=== PATIENT | female | born 1960 | race Caucasian/White ===

== ENCOUNTER 2020-04-08 18:29 | Inpatient (IN) | payer OTHER, SELFPAY ==
[2020-04-08] VITALS (9 sets, daily range): BP systolic 118–162; BP diastolic 65–93; PULSE 91–108; RESP 16–24; TEMP 36.2–37.2; O2SAT 89–100; BMI 32.9
--- NOTE | ~2020-04-08 | CT_ITS ---
EXAMINATION: CTA chest PE protocol DATE: 04/28/2020 15:58 INDICATION: Severe persistent hypoxia. COVID-19 pneumonia. TECHNIQUE: Computed tomography angiography (CTA) of the chest was performed with 100 mL Omnipaque-350 intravenous contrast timed to evaluate the pulmonary arteries. Coronal maximum intensity projection 3D-reconstructions were created by the technologist. Automated exposure control and iterative reconst ruction technique were employed. The dose-length product was 376.62 mGy-cm. COMPARISON: Chest CT 04/24/2020 FINDINGS: The lung volumes are small. There are patchy airspace opacities, groundglass opacities, and reticular opacities throughout the lungs bilaterally with areas of architectural distortion. There i s mild emphysema. There is a trace left pleural effusion. The heart size is normal. There are coronar y artery calcifications. No pericardial effusion. There is mild mediastinal and bilateral hilar lymph adenopathy, likely reactive. There is no pulmonary embolus. There is a 7.5 cm cyst in the liver. Ther e is mild thoracic spondylosis. IMPRESSION: 1. No pulmonary embolus. 2. Stable diffuse lung disease, consistent with pneumonia. 3. Mild emphysema. 4. Mild mediastinal and bilateral hilar lymphadenopathy, likely reactive. Reviewed, dictated and finalized at location A. ERY ASSEMBLER PLASTIC
--- NOTE | ~2020-04-08 | XR_ITS ---
EXAMINATION: XR chest 1V portable DATE: 04/08/2020 19:07 INDICATION: Shortness of breath. COVID-19 positive. TECHNIQUE: A single frontal view of the chest was obtained. COMPARISON: Chest single view 08/27/2007 FINDINGS: There are hazy airspace opacities in all lung zones bilaterally. No pleural effusion or pne umothorax. The heart size is normal. IMPRESSION: 1. Diffuse lung disease, consistent with pneumonia versus pulmonary edema. Reviewed, dictated and finalized at location A. UM CLEANER REPAIR PERSON
--- NOTE | ~2020-04-08 | XR_ITS ---
EXAMINATION: XR chest 2V EXAM DATE: 04/27/2020 11:50 INDICATION: COVID-19, persistent hypoxia, FOLLOW-UP. TECHNIQUE: Frontal and lateral projections of the chest obtained and reviewed. Comparison is made to prior examination from 04/23/2020. FINDINGS: Extensive bilateral peripheral predominant acute airspace disease with sizable regions of c onfluence which may have demonstrated mild progression. No pneumothorax or sizable pleural effusion. The cardiomediastinal silhouette is prominent but magnified on this AP technique. There are no osseou s abnormalities identified. IMPRESSION: Extensive acute airspace disease with mild progression in regions of confluence. Reviewed, dictated and finalized at location A. RENTAL TECHNICIAN IMPRESSION: Extensive acute airspace disease with mild progression in regions o f confluence.
--- NOTE | ~2020-04-08 | XR_ITS ---
EXAMINATION: XR chest 1V portable EXAM DATE: 04/14/2020 06:23 INDICATION: Shortness of breath. Hypoxia. COVID-19. TECHNIQUE: Portable AP frontal chest x-ray was obtained. Comparison is made to prior examination from 04/08/2020. FINDINGS: Moderate amount of ill-defined acute airspace disease involving all lung zones. Could be ed lolly, ARDS, infection. Slight interval progression compared to previous examination. No pneumothorax o r pleural effusion. Cardiomediastinal silhouette is normal. There are no osseous abnormalities identi fied. IMPRESSION: Moderate amount of diffuse ill-defined acute airspace disease. Clinical correlation. Reviewed, dictated and finalized at location A. E UP COPY CAMERA OPERATOR IMPRESSION: Moderate amount of diffuse ill-defined acute airspace disease. Clin ical correlation.
--- NOTE | ~2020-04-08 | CT_ITS ---
EXAMINATION: CTA chest PE protocol DATE: 04/24/2020 11:33 INDICATION: COVID-19 pneumonia. Hypoxia. TECHNIQUE: Computed tomography angiography (CTA) of the chest was performed with 100 mL Omnipaque-350 intravenous contrast timed to evaluate the pulmonary arteries. Coronal maximum intensity projection 3D-reconstructions were created by the technologist. Automated exposure control and iterative reconst ruction technique were employed. The dose-length product was 289.99 mGy-cm. COMPARISON: Chest 2 views 04/23/2020 FINDINGS: There is mild emphysema. There are airspace, groundglass, and reticular opacities scattered throughout the lungs bilaterally. There is a trace left pleural effusion. The heart size is normal. There are coronary artery calcifications. No pericardial effusion. There is no pulmonary embolus. The re is mild mediastinal and bilateral hilar lymphadenopathy. There is a 7.3 cm cyst in the liver. Ther e is mild thoracic spondylosis. IMPRESSION: 1. No pulmonary embolus. 2. Diffuse lung disease, consistent with pneumonia. 3. Mild emphysema. 4. Mild mediastinal and bilateral hilar lymphadenopathy, likely reactive. Reviewed, dictated and finalized at location A. NCIAL ADVOCATE
--- NOTE | ~2020-04-08 | XR_ITS ---
EXAMINATION: XR chest 2V DATE: 04/23/2020 13:04 INDICATION: COVID-19 pneumonia. Hypoxia. TECHNIQUE: Frontal and lateral views of the chest were obtained. COMPARISON: Chest single view 04/14/2020, 04/08/2020, 08/27/2007 FINDINGS: The lung volumes are decreased. There are airspace and interstitial opacities involving all lung zones bilaterally with a peripheral predominance. There is sparing of the costophrenic angles a nd relative sparing of the lung apices. No pleural effusion or pneumothorax. The heart size is normal . IMPRESSION: 1. Worsened diffuse lung disease, consistent with pneumonia. Reviewed, dictated and finalized at location A. NESS SERVICES ASSOCIATE
--- NOTE | 2020-04-08 18:38 | ECG_ITS ---
Measurements Intervals [place] Rate: 100 P: 145 AL: 133 QRS: 205 QRSD: 87 T: 169 QT: 339 QTc: 438 Interpretive Statements SINUS TACHYCARDIA ARM LEADS REVERSED RSR' IN V1 OR V2, PROBABLY NORMAL VARIANT BORDERLINE R WAVE PROGRESSION, ANTERIOR LEADS BORDERLINE T WAVE ABNORMALITY- ANT/INF LEADS BASELINE ARTIFACT- I, II, AVL BORDERLINE ECG Electronically Signed On 04-08-2020 19:21:05 WET PROCESS HEAD MILLER by Deon Albrecht D.O.
--- NOTE | 2020-04-08 19:04 | ED.SOB ---
HPI - SOB/Dyspnea General Chief Complaint: Shortness of Breath/Dyspnea Stated Complaint: Covid and trouble breathing Time Seen by Provider: 04/08/20 18:54 Source: patient History of Present Illness HPI Narrative: 59-year-old female presents to emergency department for shortness of breath for the past few days. Patient states she has never felt like this in the past before. He has tried her inhaler with minimal improvement. Patient states her granddaughter was diagnosed with coronavirus. She does report some chest discomfort and fevers. No abdominal pain. No nausea or vomiting. Related Data Allergies Allergy/AdvReac Type Severity Reaction Status Date / Time aspirin Allergy Mild Verified 09/10/10 11:51 Review of Systems Review of Systems: Narrative: CONSTITUTIONAL: Denies fever, chills, or sweats. EYES: Denies visual changes, redness, or discharge. ENT: Denies rhinorrhea, congestion, sore throat, or otalgia. CARDIOVASCULAR: Denies chest pain, palpitations, or edema. RESPIRATORY: Denies cough or dyspnea. GASTROINTESTINAL: Denies abdominal pain, nausea, vomiting, or diarrhea. GENITOURINARY: Denies dysuria or hematuria. SKIN: Denies rash or itching. MUSCULOSKELETAL: Denies back pain, joint pain, or myalgia. NEUROLOGIC: Denies headache, numbness, dizziness, or weakness. PSYCHIATRIC: Denies anxiety or depression. All systems reviewed & are unremarkable except as noted in HPI and below (ROS) Exam Narrative: Exam Narrative: GENERAL: Well-appearing, well-nourished, and in no acute distress. HEAD: Normocephalic, atraumatic. EYES: PERRLA and EOMI. ENT: Nares clear, no rhinorrhea or epistaxis. Mucous membranes moist. NECK: Supple. CHEST: Minimal bilateral expiratory wheezing HEART: Regular rate and rhythm. No murmur heard. Normal peripheral pulses. ABDOMEN: Soft, nontender, nondistended, normal active bowel sounds. EXTREMITIES: Normal range of motion. No edema. SKIN: Warm, dry, no rash. NEURO: No focal deficits. Alert and oriented x3. PSYCH: Normal mood and affect. Course Reevaluation(s) Reevaluation #1: 1939 -reevaluated patient, feels better after oxygen administration. Patient initially had oxygen saturations in the upper 80s and lower 90s. Consultations Consultation #1: 1944 - discussed case with Dr. Ybarra, accepts for OBS Vital Signs Vital signs: Vital Signs Temperature 36.2 C L 04/08/20 18:35 Pulse Rate 102 H 04/08/20 18:35 Respiratory Rate 23 H 04/08/20 18:35 Blood Pressure 162/93 H 04/08/20 18:35 Pulse Oximetry 95 04/08/20 18:35 Temperature 36.2 C L 04/08/20 18:35 Pulse Rate 108 H 04/08/20 19:35 Respiratory Rate 17 04/08/20 19:35 Blood Pressure 142/76 H 04/08/20 19:35 Pulse Oximetry 96 04/08/20 19:36 MDM - SOB/Dyspnea Medical Records Attestation: I reviewed the patient's medical records. Lab Data Attestation: I reviewed the patient's lab results. Result diagrams: 04/08/20 19:01 04/08/20 19:01 Labs: Lab Results 04/08/20 04/08/20 04/08/20 Range/Units 19:01 19:01 19:05 WBC 5.6 (4.5-10.0) K/mm3 RBC 5.06 (4.2-5.4) M/mm3 Hgb 14.3 (12.0-15.0) g/dL Hct 44.5 (37.0-47.0) % MCV 87.9 (80-100) fl MCH 28.3 (26-34) pg MCHC 32.1 (32-36) g/dl RDW 12.2 (11.5-14.5) % Plt Count 191 (150-375) k/mm3 MPV 10.4 (7.4-10.4) fl Immature Gran % (Auto) 0.5 (0-0.5) % Neut % (Auto) 74.3 H (45.5-73.1) % Lymph % (Auto) 20.6 (18.3-44.2) % [place] % (Auto) 4.4 (2.6-8.5) % Eos % (Auto) 0.0 (0-4.4) % Baso % (Auto) 0.2 (0.2-1.2) % Lymph # (Auto) 1.16 (0.9-3.2) K/mm3 [place] # (Auto) 0.3 (0.1-0.6) K/mm3 Eos # (Auto) 0.0 (0-0.3) K/mm3 Baso # (Auto) 0.0 (0.0-0.1) K/mm3 Abs Immat Gran (auto) 0.03 (0.00-0.031) K/mm3 Absolute Neuts (auto) 4.2 (1.3-6.7) K/mm3 Absolute Nucleated RBC 0.0 (0.0-0.012) K/mm3 Nucleated RBC % 0.0 (0.0-0.2) % Sodium 139 (137-145) mmol/L Pot
[2020-04-08 19:17] LABS: Basophils Percent Auto 0.2 % (0.2-1.2); Hematocrit 44.5 % (37.0-47.0); Hemoglobin 14.3 g/dL (12.0-15.0); Immature Granulocyte Absolute 0.03 K/mm3 (0.00-0.031); Immature Granulocyte Percent A 0.5 % (0-0.5); Lymphocytes Absolute Auto 1.16 K/mm3 (0.9-3.2); Lymphocytes Percent Auto 20.6 % (18.3-44.2); Mean Corpuscular HGB Conc 32.1 g/dl (32-36); Mean Corpuscular Hemoglobin 28.3 pg (26-34); Mean Corpuscular Volume 87.9 fl (80-100); Mean Platelet Volume 10.4 fl (7.4-10.4); Monocytes Absolute Auto 0.3 K/mm3 (0.1-0.6); Monocytes Percent Auto 4.4 % (2.6-8.5); Neutrophils Absolute Auto 4.2 K/mm3 (1.3-6.7); Neutrophils Percent Auto 74.3 % (45.5-73.1); Platelet Count Result 191 k/mm3 (150-375); Red Blood Count 5.06 M/mm3 (4.2-5.4); Red Cell Distribution Width 12.2 % (11.5-14.5); White Blood Count 5.6 K/mm3 (4.5-10.0)
[2020-04-08] MEDS: ALBUTEROL SULFATE (*SP) AEROSOL 1 PUFF 4 PUFF INHALATION (19:19)
[2020-04-08 19:29] LABS: Lactic Acid Reflex 2.1 mmol/L (0.7-2.1)
[2020-04-08 19:40] LABS: Alanine Aminotransferase 26 U/L (4-35); Albumin Level 3.8 g/dL (3.5-5.1); Alkaline Phosphatase 88 U/L (38-126); Anion Gap 13 mmol/L (8-16); Aspartate Amino Transferase 44 U/L (14-36); Bilirubin,Total 0.6 mg/dL (0.2-1.3); Blood Urea Nitrogen 12 mg/dL (7-17); Calcium 8.8 mg/dL (8.4-10.2); Carbon Dioxide 24 mmol/L (22-30); Chloride 102 mmol/L (98-107); Estimated Glomerular Filt Rate > 60; Glucose 168 mg/dL (65-105); Potassium 3.4 mmol/L (3.4-5.0); Sodium 139 mmol/L (137-145)
[2020-04-08] MEDS: methylPREDNISolone SOD SUCC 40 MG VIAL 80 MG IV PUSH (19:46)
--- NOTE | 2020-04-08 19:46 | PM.IMHP ---
H&P: HPI History of Present Illness Date/Time: 04/08/20 19:46 Chief complaint: suspected COVID-19 Narrative: Gloria Latif is a 59 year old female with past medical history of moderate persistent asthma who presents to the ED with complaints of shortness of breath for 1 week. She had recent sick contact of her granddaughter who has tested positive for COVID-19. patient for the past week has had fevers, chills, body aches, cough with yellow phlegm, dyspnea. She uses albuterol rescue inhaler for her asthma which did not help her with these symptoms. She is not compliant with her Symbicort. In the ED: Patient oxygen saturation went to 88% on room air and was put on 3 L nasal cannula. Chest x-ray showed bilateral infiltrate consistent COVID-19. Lab work within normal limits. EKG shows sinus tachycardia rate 100, normal intervals. patient admitted for observation for hypoxia and COVID-19. Review of Systems Review of Systems: Narrative: Constitutional: endorses fever, chills, body aches ENT/Mouth: No Hearing Changes, No Ear Pain, No Nasal Congestion, No Sinus Pain, No Hoarseness, No sore throat, No Rhinorrhea, No Swallowing Difficulty Eyes: No Eye Pain, No Redness, No Vision Changes Cardiovascular: No Chest Pain, No Palpitations, No Dyspnea on Exertion, No Orthopnea, No Claudication, No Edema Respiratory: Endorses shortness of breath and cough with yellow sputum, denies wheezing Gastrointestinal: No Nausea, No Vomiting, No Diarrhea, No Constipation, No Abdominal Pain, No Heartburn, No Hematochezia, No Melena Genitourinary: No Dysuria, No Urinary Frequency, No Hematuria, No Urinary Incontinence, No Urgency Musculoskeletal: No Arthralgias, No Myalgias, No Joint Swelling, No Joint Stiffness, No Back Pain Skin: No Skin Lesions, No Pruritis, No Hair Changes Neuro: No Weakness, No Numbness, No Paresthesias, No Loss of Consciousness, No Syncope, No Dizziness, No Headache Psych: No Anxiety/Panic, No Depression, No Insomnia Heme: No Bruising, No Bleeding Lymph: No Adenopathy Endocrine: No Polyuria, No Polydipsia, No Temperature Intolerance PMFSH Past Medical History Medical History GERD (gastroesophageal reflux disease) Moderate persistent asthma Obesity (BMI 30.0-34.9) Family History Family History Sibling Diabetes mellitus Dialysis patient Father Congestive heart failure Sibling Myocardial infarction Social History Social History (Updated 04/08/20 @ 23:29 by Crow Ybarra DO) Years smoked: 10 Smoking status: Heavy tobacco smoker Tobacco type: cigarettes Alcohol intake: former Drinks per week: 2 Substance use: former Substance use type: marijuana Last use: 1 month ago Occupation/Education: retired Additional occupation/education comments: previously worked in retirement as aide Gender identity (if verbalized by the patient): Female Spiritual care concerns: No Meds Home Medications and Allergies Home Medications Medication Instructions Recorded Confirmed Type albuterol sulfate 2 puff INHALATION Q4-6H PRN 04/08/20 04/08/20 History budesonide-formoterol [Symbicort] 2 puff INHALATION Q12H 04/08/20 04/08/20 History famotidine 20 mg PO BID 04/08/20 04/08/20 History Allergies Allergy/AdvReac Type Severity Reaction Status Date / Time aspirin Allergy Severe Hives Verified 04/08/20 22:37 Vital Signs Vital Signs - 24 hr 04/08/20 18:35 04/08/20 18:50 04/08/20 19:22 Temperature 36.2 C L Pulse Rate 102 H 101 H Respiratory Rate 23 H 18 Blood Pressure 162/93 H Pulse Oximetry 95 94 04/08/20 19:35 04/08/20 19:36 Temperature Pulse Rate 108 H Respiratory Rate 17 Blood Pressure 142/76 H Pulse Oximetry 89 L 96 Exam Narrative: Exam Narrative: - GENERAL: pleasant woman no acute distress with nonlabored breathing on 2 L O2 - EYES: E
[2020-04-08 19:47] LABS: NT Pro B Type Natriuretic Pept 87 PG/ML (5-100)
--- NOTE | 2020-04-08 20:55 | PC.NURSE ---
Attempted to call report. Told RN was in a room. She will call me back when available.
--- NOTE | 2020-04-08 21:40 | ADMGEN ---
This patient, Renata Latif, was admitted to 3 [facility] Surg Room 320-01. Patient/family oriented to hospital policies and general routines including ID bracelet, bed and alarms, visiting hours, pain management, procedures, bathroom and other care routines, personal items, smoking policy, room service/diet, and visiting hours. Information on how to activate the Rapid Response Team has been discussed. Patient/Family are encouraged to report perceived risks to care and to ask questions if they do not understand what they are told or what they should do.
[2020-04-08 22:14] LABS: Reflex Lactic Acid Yes or No Add Lactic
[2020-04-08 22:52] LABS: Lactic Acid 0.8 mmol/L (0.7-2.1)
[2020-04-09] VITALS (11 sets, daily range): BP systolic 110–143; BP diastolic 63–79; PULSE 16–94; RESP 16–20; TEMP 36.5–36.8; O2SAT 93–100
[2020-04-09 06:32] LABS: Hematocrit 44.3 % (37.0-47.0); Hemoglobin 14.6 g/dL (12.0-15.0); Mean Corpuscular Hemoglobin 28.9 pg (26-34); Mean Corpuscular Volume 87.7 fl (80-100); Mean Platelet Volume 10.8 fl (7.4-10.4); Platelet Count Result 186 k/mm3 (150-375); Red Blood Count 5.05 M/mm3 (4.2-5.4); White Blood Count 4.4 K/mm3 (4.5-10.0)
[2020-04-09 06:51] LABS: Anion Gap 13 mmol/L (8-16); Blood Urea Nitrogen 11 mg/dL (7-17); Calcium 8.8 mg/dL (8.4-10.2); Carbon Dioxide 24 mmol/L (22-30); Chloride 102 mmol/L (98-107); Estimated Glomerular Filt Rate > 60; Glucose 253 mg/dL (65-105); Lactate Dehydrogenase 833 U/L (313-618); Potassium 3.7 mmol/L (3.4-5.0); Sodium 139 mmol/L (137-145)
[2020-04-09] MEDS: CHOLECALCIFEROL 1,000 UNITS TABLET 1000 UNITS PO (08:46)
[2020-04-09] MEDS: ASCORBIC ACID 500 MG TABLET PO (08:46)
[2020-04-09] MEDS: FAMOTIDINE 20 MG TABLET PO ×2 (08:46→17:26)
[2020-04-09] MEDS: DEXAMETHASONE 2 MG TABLET 6 MG PO (08:46)
[2020-04-09] MEDS: ZINC SULFATE 220 MG CAPSULE PO (08:46)
[2020-04-09] MEDS: ENOXAPARIN 40 MG/0.4 ML SYRINGE SUB-Q ×2 (08:46→20:30)
[2020-04-09] MEDS: ALBUTEROL SULFATE (*SP) AEROSOL 1 PUFF 2 PUFF INHALATION ×3 (10:20→20:41)
--- NOTE | 2020-04-09 13:45 | PM.IMPN ---
Progress Note: A&P Assessment and Plan (1) Suspected COVID-19 virus infection: Code(s): Z20.828 - Contact with and (suspected) exposure to other viral communicable diseases Status: Acute Assessment and Plan: Patient presents with worsening shortness of breath, describes her great granddaughter tested positive for COVID 1 week ago. Chest XR shows bilateral hazy airspace opacities. COVID result still pending. Continue dexamethasone (day 2). Plan to initiate remdesivir if COVID positive this evening. Continue supplemental O2 and wean as tolerated to keep O2 saturations > 90%. On 3 L today. Continue supportive care with Tylenol for fevers, albuterol MDI, incentive spirometer, supplementation of Zinc, vitamins C and D. (2) Acute respiratory failure: Qualifiers: Respiratory failure complication: hypoxia Qualified Code(s): J96.01 - Acute respiratory failure with hypoxia Code(s): J96.00 - Acute respiratory failure, unspecified whether with hypoxia or hypercapnia Status: Acute Assessment and Plan: Secondary to above. (3) Moderate persistent asthma: Qualifiers: Asthma complication type: unspecified Qualified Code(s): J45.40 - Moderate persistent asthma, uncomplicated Code(s): J45.40 - Moderate persistent asthma, uncomplicated Status: Acute Assessment and Plan: Continue her home Symbicort. (4) Obesity (BMI 30.0-34.9): Code(s): E66.9 - Obesity, unspecified Status: Chronic Assessment and Plan: Healthy lifestyle modifications are encouraged. Subjective Date/time seen: 04/09/20 13:15 Interval history: Ms. Latif is a pleasant 59yo F admitted for acute respiratory failure secondary to COVID-19. Overall, she reports feeling much better compared to yesterday and her shortness of breath is improved. She denies chest pain. She tells me she has walked to and from the restroom in her room without shortness of breath. Tolerating some oral intake without nausea or vomiting. Review of Systems Review of Systems: All systems reviewed & are unremarkable except as noted in HPI and below Exam Narrative: Exam Narrative: General: Female resting comfortably sitting up in bed in no acute respiratory distress. HEENT: Normocephalic, EOMI, oral mucosa moist. Cardiovascular: Rate and rhythm are regular. Respiratory: Decreased breath sounds bilaterally. Respirations even and nonlabored. Tolerating 3L nasal cannula comfortably at time of my exam. Abdomen: Soft, non-tender, non-distended, bowel sounds present. Extremities: Peripheral pulses intact. No edema. Neuro: No focal neurological deficits. Speech is clear. Objective Data Vital Signs Vital Signs: Last Vital Signs Temp 98.1 F 04/09/20 16:00 Pulse 88 04/09/20 16:00 Resp 18 04/09/20 16:00 BP 129/66 04/09/20 16:00 Pulse Ox 94 04/09/20 16:05 Intake/Output Intake/Output: Intake & Output 04/06/20 04/07/20 04/08/20 04/09/20 23:59 23:59 23:59 23:59 Intake Total 590 Output Total 1000 Balance -410 Meds/Results Medications: Active Medications Generic Name Dose Route Start Last Admin Trade Name Freq PRN Reason Stop Dose Admin Acetaminophen 650 mg 04/08/20 22:24 Acetaminophen 325 Mg Tablet PO Q4H PRN Mild Pain (1-3) or Fever Albuterol 2 puff 04/09/20 08:00 Albuterol Sulfate (*Sp) Aerosol 1 Puff INHALATION QIDRT [facility] Ascorbic Acid 500 mg 04/09/20 09:00 04/09/20 08:46 Ascorbic Acid 500 Mg Tablet PO 500 mg DAILY WILBERT Administration Budesonide/Formoterol Fumarate 2 puff 04/09/20 08:00 Budesonide/Form 160-4.5 Mcg (*Sp) INHALATION Q12HRT [facility] Dexamethasone 6 mg 04/09/20 08:00 04/09/20 08:46 Dexamethasone 2 Mg Tablet PO 04/18/20 08:01 6
[2020-04-09 18:20] LABS: SARS-CoV-2 RNA PCR Positive
--- NOTE | 2020-04-09 18:54 | PC.NURSE ---
Notified Jovita AKERS of positive covid results.No new orders recived.
[2020-04-09] MEDS: REMDESIVIR 200 MG/NS 250 ML 200 MG/250 ML BAG 250 MG IVPB (20:30)
[2020-04-10] VITALS (11 sets, daily range): BP systolic 102–129; BP diastolic 58–77; PULSE 73–87; RESP 18–20; TEMP 36.5–37.4; O2SAT 90–97
[2020-04-10 06:47] LABS: Basophils Percent Auto 0.1 % (0.2-1.2); Hematocrit 44.8 % (37.0-47.0); Hemoglobin 14.4 g/dL (12.0-15.0); Immature Granulocyte Absolute 0.05 K/mm3 (0.00-0.031); Immature Granulocyte Percent A 0.4 % (0-0.5); Lymphocytes Absolute Auto 1.42 K/mm3 (0.9-3.2); Lymphocytes Percent Auto 10.9 % (18.3-44.2); Mean Corpuscular HGB Conc 32.1 g/dl (32-36); Mean Corpuscular Hemoglobin 28.5 pg (26-34); Mean Corpuscular Volume 88.5 fl (80-100); Mean Platelet Volume 10.5 fl (7.4-10.4); Monocytes Absolute Auto 0.6 K/mm3 (0.1-0.6); Monocytes Percent Auto 4.4 % (2.6-8.5); Neutrophils Percent Auto 84.2 % (45.5-73.1); Platelet Count Result 244 k/mm3 (150-375); Red Blood Count 5.06 M/mm3 (4.2-5.4)
[2020-04-10 07:13] LABS: Alanine Aminotransferase 29 U/L (4-35); Albumin Level 3.9 g/dL (3.5-5.1); Alkaline Phosphatase 85 U/L (38-126); Anion Gap 13 mmol/L (8-16); Aspartate Amino Transferase 39 U/L (14-36); Bilirubin,Total 0.5 mg/dL (0.2-1.3); Blood Urea Nitrogen 14 mg/dL (7-17); CRP 2.8 mg/dL (<1.0); Calcium 9.1 mg/dL (8.4-10.2); Carbon Dioxide 28 mmol/L (22-30); Chloride 101 mmol/L (98-107); Estimated Glomerular Filt Rate > 60; Glucose 152 mg/dL (65-105); Magnesium 2.1 mg/dL (1.6-2.3); Potassium 3.6 mmol/L (3.4-5.0); Sodium 142 mmol/L (137-145)
[2020-04-10] MEDS: ALBUTEROL SULFATE (*SP) AEROSOL 1 PUFF 2 PUFF INHALATION ×3 (08:23→16:48)
[2020-04-10] MEDS: DEXAMETHASONE 2 MG TABLET 6 MG PO (09:38)
[2020-04-10] MEDS: ZINC SULFATE 220 MG CAPSULE PO (09:38)
[2020-04-10] MEDS: FAMOTIDINE 20 MG TABLET PO ×2 (09:38→16:51)
[2020-04-10] MEDS: CHOLECALCIFEROL 1,000 UNITS TABLET 1000 UNITS PO (09:38)
[2020-04-10] MEDS: ASCORBIC ACID 500 MG TABLET PO (09:38)
[2020-04-10] MEDS: ENOXAPARIN 40 MG/0.4 ML SYRINGE SUB-Q ×2 (09:39→20:36)
[2020-04-10] MEDS: ACETAMINOPHEN 325 MG TABLET 650 MG PO (12:10)
--- NOTE | 2020-04-10 14:03 | PM.IMPN ---
Progress Note: A&P Assessment and Plan (1) Suspected COVID-19 virus infection: Code(s): Z20.828 - Contact with and (suspected) exposure to other viral communicable diseases Status: Acute Assessment and Plan: Patient presents with worsening shortness of breath, describes her great granddaughter tested positive for COVID 1 week ago. Chest XR showed bilateral hazy airspace opacities. COVID positive 04/08. Continue dexamethasone (day 3); remdesivir (day 2). Continue supplemental O2 and wean as tolerated to keep O2 saturations > 90%. Remains on 3 L today. Continue supportive care with Tylenol for fevers, albuterol MDI, incentive spirometer, supplementation of Zinc, vitamins C and D. (2) Acute respiratory failure: Qualifiers: Respiratory failure complication: hypoxia Qualified Code(s): J96.01 - Acute respiratory failure with hypoxia Code(s): J96.00 - Acute respiratory failure, unspecified whether with hypoxia or hypercapnia Status: Acute Assessment and Plan: Secondary to above. (3) Moderate persistent asthma: Qualifiers: Asthma complication type: unspecified Qualified Code(s): J45.40 - Moderate persistent asthma, uncomplicated Code(s): J45.40 - Moderate persistent asthma, uncomplicated Status: Acute Assessment and Plan: Continue her home Symbicort. (4) Obesity (BMI 30.0-34.9): Code(s): E66.9 - Obesity, unspecified Status: Chronic Assessment and Plan: Healthy lifestyle modifications are encouraged. Subjective Date/time seen: 04/10/20 1300 Interval history: Ms. Latif is a pleasant 59yo F admitted for acute respiratory failure secondary to COVID-19. She is short of breath with walking today. Didn't sleep much last night. No chest pain. Her appetite is good and she is tolerating oral intake without nausea or vomiting. Starting to get smell and taste back today. Denies any urinary symptoms such as dysuria or hematuria. Review of Systems Review of Systems: All systems reviewed & are unremarkable except as noted in HPI and below Exam Narrative: Exam Narrative: General: Female resting comfortably sitting up on bedside couch eating lunch in no acute respiratory distress. HEENT: Normocephalic, EOMI, oral mucosa moist. Cardiovascular: Rate and rhythm are regular. Respiratory: Decreased breath sounds bilaterally. Respirations even and nonlabored. Tolerating 3L nasal cannula comfortably at time of my exam. Abdomen: Soft, non-tender, non-distended, bowel sounds present. Extremities: Peripheral pulses intact. No edema. Neuro: No focal neurological deficits. Speech is clear. Objective Data Vital Signs Vital Signs: Last Vital Signs Temp 98.0 F 04/10/20 13:10 Pulse 87 04/10/20 12:00 Resp 20 04/10/20 12:00 BP 129/68 04/10/20 12:00 Pulse Ox 92 04/10/20 12:00 Intake/Output Intake/Output: Intake & Output 04/07/20 04/08/20 04/09/20 04/10/20 23:59 23:59 23:59 23:59 Intake Total 1460 930 Output Total 2300 Balance -840 930 Meds/Results Medications: Active Medications Generic Name Dose Route Start Last Admin Trade Name Freq PRN Reason Stop Dose Admin Acetaminophen 650 mg 04/08/20 22:24 04/10/20 12:10 Acetaminophen 325 Mg Tablet PO 650 mg Q4H PRN Administration Mild Pain (1-3) or Fever Albuterol 2 puff 04/09/20 08:00 04/10/20 13:01 Albuterol Sulfate (*Sp) Aerosol 1 Puff INHALATION 2 puff QIDRT WILBERT Administration Ascorbic Acid 500 mg 04/09/20 09:00 04/10/20 09:38 Ascorbic Acid 500 Mg Tablet PO 500 mg DAILY WILBERT Administration Budesonide/Formoterol Fumarate 2 puff 04/09/20 08:00 04/10/20 08:23 Budesonide/Form 160-4.5 Mcg (*Sp) INHALATION 2 puff Q12HRT WILBERT Administration Dexame
[2020-04-10] MEDS: REMDESIVIR 100 MG/NS 250 ML 100 MG/250 ML BAG 250 MG IVPB (15:04)
[2020-04-10 15:21] LABS: Add Urine Microscopic? NO; Appearance Urine Clear (Clear); Bilirubin Urine Negative (Negative); Blood Urine Negative (Negative); Color Urine Yellow (Yellow); Glucose Urine UA Negative (Negative); Ketones Urine Negative (Negative); Leukocyte Esterase Ur Negative LEU/UL (Negative); Nitrate Urine Negative (Negative); Protein Urine Negative (Negative); Urobilinogen Urine Negative mg/dL (<2.0)
[2020-04-11] VITALS (8 sets, daily range): BP systolic 112–125; BP diastolic 58–67; PULSE 66–76; RESP 18–20; TEMP 36.3–36.9; O2SAT 90–94
[2020-04-11 06:41] LABS: Basophils Percent Auto 0.1 % (0.2-1.2); Hematocrit 41.3 % (37.0-47.0); Hemoglobin 13.6 g/dL (12.0-15.0); Immature Granulocyte Absolute 0.03 K/mm3 (0.00-0.031); Immature Granulocyte Percent A 0.3 % (0-0.5); Lymphocytes Absolute Auto 1.33 K/mm3 (0.9-3.2); Lymphocytes Percent Auto 14.5 % (18.3-44.2); Mean Corpuscular HGB Conc 32.9 g/dl (32-36); Mean Corpuscular Hemoglobin 28.8 pg (26-34); Mean Corpuscular Volume 87.3 fl (80-100); Mean Platelet Volume 10.6 fl (7.4-10.4); Monocytes Absolute Auto 0.6 K/mm3 (0.1-0.6); Monocytes Percent Auto 6.6 % (2.6-8.5); Neutrophils Absolute Auto 7.2 K/mm3 (1.3-6.7); Neutrophils Percent Auto 78.5 % (45.5-73.1); Platelet Count Result 251 k/mm3 (150-375); Red Blood Count 4.73 M/mm3 (4.2-5.4); White Blood Count 9.2 K/mm3 (4.5-10.0)
[2020-04-11 06:57] LABS: Alanine Aminotransferase 28 U/L (4-35); Albumin Level 3.6 g/dL (3.5-5.1); Alkaline Phosphatase 80 U/L (38-126); Anion Gap 9 mmol/L (8-16); Aspartate Amino Transferase 32 U/L (14-36); Bilirubin,Total 0.6 mg/dL (0.2-1.3); Blood Urea Nitrogen 20 mg/dL (7-17); CRP 3.9 mg/dL (<1.0); Calcium 8.7 mg/dL (8.4-10.2); Carbon Dioxide 29 mmol/L (22-30); Chloride 102 mmol/L (98-107); Estimated Glomerular Filt Rate > 60; Glucose 128 mg/dL (65-105); Lactate Dehydrogenase 953 U/L (313-618); Magnesium 2.1 mg/dL (1.6-2.3); Potassium 3.5 mmol/L (3.4-5.0); Sodium 140 mmol/L (137-145)
[2020-04-11] MEDS: ALBUTEROL SULFATE (*SP) AEROSOL 1 PUFF 2 PUFF INHALATION ×4 (07:28→19:37)
[2020-04-11] MEDS: DEXAMETHASONE 2 MG TABLET 6 MG PO (08:26)
[2020-04-11] MEDS: LIDOCAINE 5% PATCH 1 PATCH TRANSDERM (08:27)
[2020-04-11] MEDS: ZINC SULFATE 220 MG CAPSULE PO (08:27)
[2020-04-11] MEDS: CHOLECALCIFEROL 1,000 UNITS TABLET 1000 UNITS PO (08:27)
[2020-04-11] MEDS: FAMOTIDINE 20 MG TABLET PO ×2 (08:27→17:12)
[2020-04-11] MEDS: ENOXAPARIN 40 MG/0.4 ML SYRINGE SUB-Q ×2 (08:27→20:51)
[2020-04-11] MEDS: ASCORBIC ACID 500 MG TABLET PO (08:28)
--- NOTE | 2020-04-11 13:24 | PM.IMPN ---
Progress Note: A&P Assessment and Plan (1) Suspected COVID-19 virus infection: Code(s): Z20.828 - Contact with and (suspected) exposure to other viral communicable diseases Status: Acute Assessment and Plan: Patient presented with worsening shortness of breath, describes her great granddaughter tested positive for COVID 1 week ago. Chest XR showed bilateral hazy airspace opacities. COVID positive 04/08. Continue dexamethasone (day 4); remdesivir (day 3). Continue supplemental O2 and wean as tolerated to keep O2 saturations > 90%. Remains on 3 L today. (Attempted wean down to 2L this morning and she desaturated to 84%.) Continue supportive care with Tylenol for fevers, albuterol MDI, incentive spirometer, supplementation of Zinc, vitamins C and D. (2) Acute respiratory failure: Qualifiers: Respiratory failure complication: hypoxia Qualified Code(s): J96.01 - Acute respiratory failure with hypoxia Code(s): J96.00 - Acute respiratory failure, unspecified whether with hypoxia or hypercapnia Status: Acute Assessment and Plan: Secondary to above. (3) Moderate persistent asthma: Qualifiers: Asthma complication type: unspecified Qualified Code(s): J45.40 - Moderate persistent asthma, uncomplicated Code(s): J45.40 - Moderate persistent asthma, uncomplicated Status: Acute Assessment and Plan: Continue her home Symbicort. (4) Obesity (BMI 30.0-34.9): Code(s): E66.9 - Obesity, unspecified Status: Chronic Assessment and Plan: Healthy lifestyle modifications are encouraged. Subjective Date/time seen: 04/11/20 1245 Interval history: Ms. Latif is a pleasant 59yo F admitted for acute respiratory failure secondary to COVID-19. She is feeling okay today, shortness of breath is about the same as yesterday. Slept a little better last night. She denies chest pain. Her appetite is good and she is tolerating oral intake without nausea or vomiting. Starting to get smell and taste back. Review of Systems Review of Systems: All systems reviewed & are unremarkable except as noted in HPI and below Exam Narrative: Exam Narrative: General: Female resting comfortably sitting up on bedside couch in no acute respiratory distress. HEENT: Normocephalic, EOMI, oral mucosa moist. Cardiovascular: Rate and rhythm are regular. Respiratory: Decreased breath sounds bilaterally. Respirations even and nonlabored. Tolerating 3L nasal cannula comfortably at time of my exam. Abdomen: Soft, non-tender, non-distended, bowel sounds present. Extremities: Peripheral pulses intact. No edema. Neuro: No focal neurological deficits. Speech is clear. Objective Data Vital Signs Vital Signs: Last Vital Signs Temp 98.3 F 04/11/20 12:00 Pulse 71 04/11/20 12:00 Resp 18 04/11/20 12:00 BP 125/67 04/11/20 12:00 Pulse Ox 94 04/11/20 12:00 Intake/Output Intake/Output: Intake & Output 04/08/20 04/09/20 04/10/20 04/11/20 23:59 23:59 23:59 23:59 Intake Total 1460 2180 370 Output Total 2300 500 Balance -840 1680 370 Meds/Results Medications: Active Medications Generic Name Dose Route Start Last Admin Trade Name Freq PRN Reason Stop Dose Admin Acetaminophen 650 mg 04/08/20 22:24 04/10/20 12:10 Acetaminophen 325 Mg Tablet PO 650 mg Q4H PRN Administration Mild Pain (1-3) or Fever Albuterol 2 puff 04/09/20 08:00 04/11/20 11:32 Albuterol Sulfate (*Sp) Aerosol 1 Puff INHALATION 2 puff QIDRT WILBERT Administration Ascorbic Acid 500 mg 04/09/20 09:00 04/11/20 08:28 Ascorbic Acid 500 Mg Tablet PO 500 mg DAILY WILBERT Administration Budesonide/Formoterol Fumarate 2 puff 04/09/20 08:00 04/11/20 07:28 Budesonide/Form 160-4.5 Mcg (*Sp) INH
[2020-04-11] MEDS: REMDESIVIR 100 MG/NS 250 ML 100 MG/250 ML BAG 250 MG IVPB (14:45)
[2020-04-11] MEDS: FUROSEMIDE INJ 40 MG/4 ML VIAL 20 MG IV PUSH (18:22)
[2020-04-11 19:05] LABS: Procalcitonin <0.10 ng/mL (<0.10)
[2020-04-12] VITALS (16 sets, daily range): BP systolic 105–134; BP diastolic 61–80; PULSE 63–71; RESP 18–22; TEMP 36.7–37.4; O2SAT 88–96
[2020-04-12 07:20] LABS: Basophils Percent Auto 0.1 % (0.2-1.2); Hematocrit 41.3 % (37.0-47.0); Hemoglobin 13.4 g/dL (12.0-15.0); Immature Granulocyte Absolute 0.08 K/mm3 (0.00-0.031); Immature Granulocyte Percent A 0.9 % (0-0.5); Lymphocytes Absolute Auto 1.58 K/mm3 (0.9-3.2); Lymphocytes Percent Auto 17.5 % (18.3-44.2); Mean Corpuscular HGB Conc 32.4 g/dl (32-36); Mean Corpuscular Hemoglobin 28.3 pg (26-34); Mean Corpuscular Volume 87.1 fl (80-100); Mean Platelet Volume 10.4 fl (7.4-10.4); Monocytes Absolute Auto 0.6 K/mm3 (0.1-0.6); Monocytes Percent Auto 6.3 % (2.6-8.5); Neutrophils Absolute Auto 6.8 K/mm3 (1.3-6.7); Neutrophils Percent Auto 75.2 % (45.5-73.1); Platelet Count Result 281 k/mm3 (150-375); Red Blood Count 4.74 M/mm3 (4.2-5.4); Red Cell Distribution Width 11.9 % (11.5-14.5)
[2020-04-12 07:27] LABS: Alanine Aminotransferase 24 U/L (4-35); Albumin Level 3.3 g/dL (3.5-5.1); Alkaline Phosphatase 76 U/L (38-126); Anion Gap 8 mmol/L (8-16); Aspartate Amino Transferase 24 U/L (14-36); Bilirubin,Total 0.7 mg/dL (0.2-1.3); Blood Urea Nitrogen 17 mg/dL (7-17); Calcium 8.5 mg/dL (8.4-10.2); Carbon Dioxide 30 mmol/L (22-30); Chloride 101 mmol/L (98-107); Estimated Glomerular Filt Rate > 60; Glucose 129 mg/dL (65-105); Potassium 3.1 mmol/L (3.4-5.0); Sodium 139 mmol/L (137-145)
[2020-04-12] MEDS: ZINC SULFATE 220 MG CAPSULE PO (08:13)
[2020-04-12] MEDS: ASCORBIC ACID 500 MG TABLET PO (08:13)
[2020-04-12] MEDS: LIDOCAINE 5% PATCH 1 PATCH TRANSDERM (08:13)
[2020-04-12] MEDS: DEXAMETHASONE 2 MG TABLET 6 MG PO (08:13)
[2020-04-12] MEDS: CHOLECALCIFEROL 1,000 UNITS TABLET 1000 UNITS PO (08:14)
[2020-04-12] MEDS: ENOXAPARIN 40 MG/0.4 ML SYRINGE SUB-Q ×2 (08:14→20:54)
[2020-04-12] MEDS: FAMOTIDINE 20 MG TABLET PO ×2 (08:16→17:28)
[2020-04-12] MEDS: ALBUTEROL SULFATE (*SP) AEROSOL 1 PUFF 2 PUFF INHALATION ×5 (08:21→21:56)
--- NOTE | 2020-04-12 11:32 | PM.IMPN ---
Progress Note: A&P Assessment and Plan (1) Pneumonia due to 2019 novel coronavirus: Code(s): U07.1 - COVID-19; J12.89 - Other viral pneumonia Status: Acute Assessment and Plan: Patient presented with worsening shortness of breath and COVID positive contacts. Chest x-ray showed bilateral hazy airspace opacities and diffuse lung disease. She initially required 3 L O2 per nasal cannula but today was increased to 7 L high-flow NC. She is currently maintaining adequate oxygen saturations at 94%. She is afebrile. Blood tinged sputum is noted which is felt to be secondary to productive cough. PE is considered but unlikely as d-dimer is wnl. Continue dexamethasone (day 5) for up to 10 days and remdesivir (day 4) for up to 5 days. Supplemental O2 as needed with goal saturation 90% or above. Wean as tolerated to goal. Monitor with continuous pulse ox. Supportive care to include antipyretics, bronchodilators, expectorants, and supplementation of Zinc, vitamins C and D. Trend acute phase reactants (2) Acute respiratory failure: Qualifiers: Respiratory failure complication: hypoxia Qualified Code(s): J96.01 - Acute respiratory failure with hypoxia Code(s): J96.00 - Acute respiratory failure, unspecified whether with hypoxia or hypercapnia Status: Acute Assessment and Plan: Secondary to above. Continue supplemental O2 as above. Wean to goal. (3) Moderate persistent asthma: Qualifiers: Asthma complication type: unspecified Qualified Code(s): J45.40 - Moderate persistent asthma, uncomplicated Code(s): J45.40 - Moderate persistent asthma, uncomplicated Status: Acute Assessment and Plan: Not in acute exacerbation. Continue her home Symbicort. Albuterol scheduled as above (4) Obesity (BMI 30.0-34.9): Code(s): E66.9 - Obesity, unspecified Status: Chronic Assessment and Plan: Healthy lifestyle modifications are encouraged. Subjective Date/time seen: 04/12/20 11:32 Interval history: Date of service: 04/12/2020 Renata Latif is a 59 year old female with a history of asthma who is seen in follow up for COVID-19 pneumonia. She reports that she is feeling well today. Her oxygen was increased to 7L this morning as she was hypoxic, however she did not feel any more short of breath. She endorses BRICENO. Denies orthopnea or PND. No anosmia or dysguesia. She has been coughing and feels her cough is becoming much looser and she is having red-streaked sputum production. Her appetite has been good. She had a normal formed BM this morning. She denies urinary symptoms. No nausea, vomiting, fever, chills, dizziness, lightheadedness, weakness. She was complaining of posterior neck pain from laying in bed, but this improved after sleeping on the couch last night. She has no additional concerns at this time. Review of Systems Review of Systems: All systems reviewed & are unremarkable except as noted in HPI and below Exam Narrative: Exam Narrative: Ms. Latif is a well-nourished, well-appearing 59-year-old female who is resting comfortably sitting up on the couch. She appears comfortable and is in NARD. HR 60, BP 105/63, RR 22 T 98.5?, 94% on 7L Neuro: awake, alert and oriented x4, speech clear, no focal neuro deficits noted HEENMT: normocephalic, atraumatic, EOMI, sclerae anicteric, moist oral mucosa, tongue midline, nares patent Neck: supple, no lymphadenopathy Respiratory: diminished breath sounds bilaterally, wet cough noted on exam, nonlabored breathing, red tinged sputum visualized Cardio: regular rate, regular rhythm with S1-S2 Abdomen: nondistended, normoactive bowel sounds, soft, nontender to palpation, no rigidity or guarding Extremities: no edema, erythema, cyanosis, clubbing, or tenderness to palpation, DP pulses 2+ bilaterally Skin: no rashes or lesions, warm and dry Psych: appropriate mood and affect, judgment and insight intact
[2020-04-12 13:29] LABS: D Dimer 0.28 ug/mL (<0.48)
[2020-04-12] MEDS: guaiFENesin 12 HR 600 MG TABCR PO ×2 (15:05→20:54)
[2020-04-12] MEDS: REMDESIVIR 100 MG/NS 250 ML 100 MG/250 ML BAG 250 MG IVPB (15:05)
[2020-04-12] MEDS: POTASSIUM CHLORIDE 20 MEQ TABLET 40 MEQ PO (15:05)
[2020-04-13] VITALS (10 sets, daily range): BP systolic 100–132; BP diastolic 41–68; PULSE 62–83; RESP 16–22; TEMP 36.6–36.8; O2SAT 91–98
[2020-04-13 07:16] LABS: Hematocrit 40.2 % (37.0-47.0); Hemoglobin 13.1 g/dL (12.0-15.0); Mean Corpuscular HGB Conc 32.6 g/dl (32-36); Mean Corpuscular Volume 85.9 fl (80-100); Mean Platelet Volume 10.7 fl (7.4-10.4); Platelet Count Result 313 k/mm3 (150-375); Red Blood Count 4.68 M/mm3 (4.2-5.4); White Blood Count 8.8 K/mm3 (4.5-10.0)
[2020-04-13 07:28] LABS: Alanine Aminotransferase 29 U/L (4-35); Albumin Level 3.2 g/dL (3.5-5.1); Alkaline Phosphatase 73 U/L (38-126); Anion Gap 7 mmol/L (8-16); Aspartate Amino Transferase 31 U/L (14-36); Bilirubin,Total 0.8 mg/dL (0.2-1.3); Blood Urea Nitrogen 19 mg/dL (7-17); Calcium 8.4 mg/dL (8.4-10.2); Carbon Dioxide 28 mmol/L (22-30); Chloride 103 mmol/L (98-107); Estimated Glomerular Filt Rate > 60; Glucose 112 mg/dL (65-105); Lactate Dehydrogenase 934 U/L (313-618); Potassium 3.6 mmol/L (3.4-5.0); Sodium 138 mmol/L (137-145)
[2020-04-13] MEDS: ALBUTEROL SULFATE (*SP) AEROSOL 1 PUFF 2 PUFF INHALATION ×4 (07:46→20:57)
[2020-04-13] MEDS: LIDOCAINE 5% PATCH 1 PATCH TRANSDERM (09:30)
[2020-04-13] MEDS: guaiFENesin 12 HR 600 MG TABCR PO ×2 (09:31→20:59)
[2020-04-13] MEDS: ZINC SULFATE 220 MG CAPSULE PO (09:31)
[2020-04-13] MEDS: ASCORBIC ACID 500 MG TABLET PO (09:31)
[2020-04-13] MEDS: DEXAMETHASONE 2 MG TABLET 6 MG PO (09:31)
[2020-04-13] MEDS: ENOXAPARIN 40 MG/0.4 ML SYRINGE SUB-Q ×2 (09:32→20:59)
[2020-04-13] MEDS: FAMOTIDINE 20 MG TABLET PO ×2 (09:32→17:44)
[2020-04-13] MEDS: CHOLECALCIFEROL 1,000 UNITS TABLET 1000 UNITS PO (09:38)
--- NOTE | 2020-04-13 10:39 | PM.IMPN ---
Progress Note: A&P Assessment and Plan (1) Pneumonia due to 2019 novel coronavirus: Code(s): U07.1 - COVID-19; J12.89 - Other viral pneumonia Status: Acute Assessment and Plan: Patient presented with worsening shortness of breath and COVID positive contacts. She had been symptomatic approximately 7 days prior to presentation. Chest x-ray showed bilateral hazy airspace opacities and diffuse lung disease. Oxygen requirements have increased and she is up to 14 L high flow NC today. She is maintaining adequate oxygen saturations in the mid 90s. She has occasional, brief episodes of desaturations in the high 80s, however this seems to correlate with her removing her NC to blow her nose. She is afebrile. Blood tinged sputum is noted which is felt to be secondary to productive cough. PE considered but unlikely as d-dimer is wnl. Continue dexamethasone (day 5) for up to 10 days She will complete 5 days of remdesivir today. Will not extend course of remdesivir beyond recommended 5 days given onset of symptoms >10 days ago, therefore would anticipate little clinical benefit at this point in course of illness. Supplemental O2 as needed with goal saturation 90% or above. Wean as tolerated to goal. Monitor with continuous pulse ox. Supportive care to include antipyretics, bronchodilators, expectorants, and supplementation of Zinc, vitamins C and D. Trend acute phase reactants Increased O2 requirements are noted. Transition to ICU will be considered if further increase in O2 is required. Repeat CXR (2) Acute respiratory failure: Qualifiers: Respiratory failure complication: hypoxia Qualified Code(s): J96.01 - Acute respiratory failure with hypoxia Code(s): J96.00 - Acute respiratory failure, unspecified whether with hypoxia or hypercapnia Status: Acute Assessment and Plan: Secondary to above. Continue supplemental O2 as above. Wean to goal. (3) Moderate persistent asthma: Qualifiers: Asthma complication type: unspecified Qualified Code(s): J45.40 - Moderate persistent asthma, uncomplicated Code(s): J45.40 - Moderate persistent asthma, uncomplicated Status: Acute Assessment and Plan: Not in acute exacerbation. Continue her home Symbicort. Albuterol scheduled as above (4) Obesity (BMI 30.0-34.9): Code(s): E66.9 - Obesity, unspecified Status: Chronic Assessment and Plan: Healthy lifestyle modifications are encouraged. Subjective Date/time seen: 04/13/20 10:39 Interval history: Date of service: 04/13/2020 Renata Latif is a 59 year old female with a history of asthma who is seen in follow up for COVID-19 pneumonia. Her O2 requirements have increased but she is feeling the same today. She continues to endorse SOB at rest and with exertion. She feels that she has plateaued and is feeling no better or worse than previously. She mentions that her daughter wishes for her to be transferred to [facility] but she does not want to consider this. She is still having cough productive of brownish-red sputum. She endorses lightheadedness that occurs after exertion. She denies dizziness. She had a formed BM yesterday. She denies abdominal pain, nausea, or vomiting. She denies urinary symptoms. She has been eating well. She is sleeping much better since transitioning to the couch. I spoke with her daughter via phone with the patient's permission to provide updates and answer questions. Review of Systems Review of Systems: All systems reviewed & are unremarkable except as noted in HPI and below Exam Narrative: Exam Narrative: Ms. Latif is a well-nourished, well-appearing 59-year-old female who is resting comfortably sitting up on the couch. She appears comfortable and is in NARD. HR 65, BP 113/61, RR 22 T 97.9?, 93% on 10L Neuro: awake, alert and oriented x4, speech clear, no focal neuro deficits noted HEENMT: normocephal
[2020-04-13] MEDS: REMDESIVIR 100 MG/NS 250 ML 100 MG/250 ML BAG 250 MG IVPB (14:30)
[2020-04-14] VITALS (11 sets, daily range): BP systolic 105–121; BP diastolic 59–86; PULSE 59–77; RESP 18–22; TEMP 36.3–37.1; O2SAT 87–96
[2020-04-14 06:44] LABS: Hematocrit 40.2 % (37.0-47.0); Hemoglobin 13.2 g/dL (12.0-15.0); Mean Corpuscular HGB Conc 32.8 g/dl (32-36); Mean Corpuscular Hemoglobin 28.3 pg (26-34); Mean Corpuscular Volume 86.1 fl (80-100); Mean Platelet Volume 10.5 fl (7.4-10.4); Platelet Count Result 351 k/mm3 (150-375); Red Blood Count 4.67 M/mm3 (4.2-5.4); White Blood Count 8.9 K/mm3 (4.5-10.0)
[2020-04-14 06:57] LABS: Alanine Aminotransferase 25 U/L (4-35); Albumin Level 3.1 g/dL (3.5-5.1); Alkaline Phosphatase 76 U/L (38-126); Anion Gap 7 mmol/L (8-16); Aspartate Amino Transferase 20 U/L (14-36); Bilirubin,Total 0.7 mg/dL (0.2-1.3); Blood Urea Nitrogen 17 mg/dL (7-17); CRP 2.9 mg/dL (<1.0); Calcium 8.4 mg/dL (8.4-10.2); Carbon Dioxide 27 mmol/L (22-30); Chloride 104 mmol/L (98-107); Estimated Glomerular Filt Rate > 60; Glucose 133 mg/dL (65-105); Lactate Dehydrogenase 792 U/L (313-618); Potassium 3.6 mmol/L (3.4-5.0); Sodium 138 mmol/L (137-145)
[2020-04-14] MEDS: ENOXAPARIN 40 MG/0.4 ML SYRINGE SUB-Q ×2 (08:59→20:07)
[2020-04-14] MEDS: FAMOTIDINE 20 MG TABLET PO ×2 (09:00→18:10)
[2020-04-14] MEDS: ZINC SULFATE 220 MG CAPSULE PO (09:00)
[2020-04-14] MEDS: ASCORBIC ACID 500 MG TABLET PO (09:00)
[2020-04-14] MEDS: DEXAMETHASONE 2 MG TABLET 6 MG PO (09:00)
[2020-04-14] MEDS: CHOLECALCIFEROL 1,000 UNITS TABLET 1000 UNITS PO (09:00)
[2020-04-14] MEDS: guaiFENesin 12 HR 600 MG TABCR PO ×2 (09:01→20:07)
[2020-04-14] MEDS: SALINE 0.65% NAS SOLN 44 ML BTL 1 SPRAY NASAL (09:01)
[2020-04-14] MEDS: LIDOCAINE 5% PATCH 1 PATCH TRANSDERM (09:01)
[2020-04-14] MEDS: ALBUTEROL SULFATE (*SP) AEROSOL 1 PUFF 2 PUFF INHALATION ×3 (09:10→20:38)
--- NOTE | 2020-04-14 11:28 | PM.IMPN ---
Progress Note: A&P Assessment and Plan (1) Pneumonia due to 2019 novel coronavirus: Code(s): U07.1 - COVID-19; J12.89 - Other viral pneumonia Status: Acute Assessment and Plan: Patient presented with worsening shortness of breath and COVID positive contacts. She had been symptomatic approximately 7 days prior to presentation. Chest x-ray showed bilateral hazy airspace opacities and diffuse lung disease. Oxygen requirements have increased and she is up to 15 L high flow NC today. She is maintaining adequate oxygen saturations in the mid 90s. She has occasional, brief episodes of desaturations in the high 80s, however this seems to correlate with her removing her NC. She is afebrile. Blood tinged sputum noted which is felt to be secondary to productive cough and is resolving. Repeat CXR today showed moderate amount of diffuse ill-defined airspace disease with slight progression from prior CXR. Continue dexamethasone (day 6) for up to 10 days She completed 5 days of remdesivir on 04/13 Supplemental O2 as needed with goal saturation 90% or above. Wean as tolerated to goal. Monitor with continuous pulse ox. Supportive care to include antipyretics, bronchodilators, expectorants, and supplementation of Zinc, vitamins C and D. Trend acute phase reactants Increased O2 requirements are noted. Transition to ICU will be considered if further increase in O2 is required. (2) Acute respiratory failure: Qualifiers: Respiratory failure complication: hypoxia Qualified Code(s): J96.01 - Acute respiratory failure with hypoxia Code(s): J96.00 - Acute respiratory failure, unspecified whether with hypoxia or hypercapnia Status: Acute Assessment and Plan: Secondary to above. Continue supplemental O2 as above. Wean to goal. (3) Moderate persistent asthma: Qualifiers: Asthma complication type: unspecified Qualified Code(s): J45.40 - Moderate persistent asthma, uncomplicated Code(s): J45.40 - Moderate persistent asthma, uncomplicated Status: Acute Assessment and Plan: Not in acute exacerbation. Continue her home Symbicort. Albuterol scheduled as above (4) Obesity (BMI 30.0-34.9): Code(s): E66.9 - Obesity, unspecified Status: Chronic Assessment and Plan: Healthy lifestyle modifications are encouraged. Subjective Date/time seen: 04/14/20 11:28 Interval history: Date of service: 04/13/2020 Renata Latif is a 59 year old female with a history of asthma who is seen in follow up for COVID-19 pneumonia. She reports that she is feeling better today. She tells me that she had been taking off her oxygen because it was irritating her nose but this is much less bothersome to her after she has been using nasal saline spray. We discussed that she needs to leave the oxygen on to prevent desaturations. She is more comfortable with her oxygen now that her nose is less dry. She is still coughing with lessened brown sputum production. She continues to endorse dyspnea with minimal exertion. Denies dizziness or lightheadedness. She is eating and drinking well. She is eager to return home. Review of Systems Review of Systems: All systems reviewed & are unremarkable except as noted in HPI and below Exam Narrative: Exam Narrative: Ms. Latif is a well-nourished, well-appearing 59-year-old female who is resting comfortably sitting up on the couch. She appears comfortable and is in NARD. HR 65, BP 113/61, RR 22 T 97.9?, 91% on 14L Neuro: awake, alert and oriented x4, speech clear, no focal neuro deficits noted HEENMT: normocephalic, atraumatic, EOMI, sclerae anicteric, moist oral mucosa, tongue midline, nares patent Neck: supple, no lymphadenopathy Respiratory: diminished breath sounds bilaterally, nonlabored breathing, able to speak in full sentences Cardio: regular rate, regular rhythm with S1-S2 Abdomen: nondistended, normoactive bowel sounds, s
[2020-04-15] VITALS (11 sets, daily range): BP systolic 104–118; BP diastolic 52–69; PULSE 59–76; RESP 20–22; TEMP 35.7–36.9; O2SAT 89–96
[2020-04-15 06:25] LABS: Hematocrit 39.9 % (37.0-47.0); Hemoglobin 13.1 g/dL (12.0-15.0); Mean Corpuscular HGB Conc 32.8 g/dl (32-36); Mean Corpuscular Hemoglobin 28.2 pg (26-34); Mean Corpuscular Volume 85.8 fl (80-100); Mean Platelet Volume 10.4 fl (7.4-10.4); Platelet Count Result 376 k/mm3 (150-375); Red Blood Count 4.65 M/mm3 (4.2-5.4); Red Cell Distribution Width 12.1 % (11.5-14.5); White Blood Count 9.8 K/mm3 (4.5-10.0)
[2020-04-15 06:44] LABS: Alanine Aminotransferase 22 U/L (4-35); Albumin Level 3.1 g/dL (3.5-5.1); Alkaline Phosphatase 75 U/L (38-126); Anion Gap 7 mmol/L (8-16); Aspartate Amino Transferase 17 U/L (14-36); Bilirubin,Total 0.9 mg/dL (0.2-1.3); Blood Urea Nitrogen 16 mg/dL (7-17); CRP 3.2 mg/dL (<1.0); Calcium 8.5 mg/dL (8.4-10.2); Carbon Dioxide 27 mmol/L (22-30); Chloride 104 mmol/L (98-107); Estimated Glomerular Filt Rate > 60; Glucose 141 mg/dL (65-105); Lactate Dehydrogenase 722 U/L (313-618); Potassium 3.5 mmol/L (3.4-5.0); Sodium 138 mmol/L (137-145)
[2020-04-15] MEDS: ALBUTEROL SULFATE (*SP) AEROSOL 1 PUFF 2 PUFF INHALATION ×4 (07:56→22:06)
[2020-04-15] MEDS: guaiFENesin 12 HR 600 MG TABCR PO ×2 (08:08→23:37)
[2020-04-15] MEDS: ZINC SULFATE 220 MG CAPSULE PO (08:08)
[2020-04-15] MEDS: ASCORBIC ACID 500 MG TABLET PO (08:09)
[2020-04-15] MEDS: FAMOTIDINE 20 MG TABLET PO ×2 (08:09→17:09)
[2020-04-15] MEDS: DEXAMETHASONE 2 MG TABLET 6 MG PO (08:09)
[2020-04-15] MEDS: CHOLECALCIFEROL 1,000 UNITS TABLET 1000 UNITS PO (08:09)
[2020-04-15] MEDS: LIDOCAINE 5% PATCH 1 PATCH TRANSDERM (08:10)
--- NOTE | 2020-04-15 10:58 | PM.IMPN ---
Progress Note: A&P Assessment and Plan (1) Pneumonia due to 2019 novel coronavirus: Code(s): U07.1 - COVID-19; J12.89 - Other viral pneumonia Status: Acute Assessment and Plan: Patient presented with worsening shortness of breath and COVID positive contacts. She had been symptomatic approximately 7 days prior to presentation. Chest x-ray showed bilateral hazy airspace opacities and diffuse lung disease. Oxygen requirements have increased and she is up to 15 L high flow NC today. O2 sats have been stable at 91%.. She has occasional, brief episodes of desaturations in the high 80s, however this seems to correlate with her removing her NC and we discussed that she should not remove this. She is afebrile. Blood tinged sputum noted which is felt to be secondary to productive cough and is resolving. Repeat CXR 04/14 showed moderate amount of diffuse ill-defined airspace disease with slight progression from prior CXR. Continue dexamethasone (day 7) for up to 10 days She completed 5 days of remdesivir on 04/13 Supplemental O2 as needed with goal saturation 90% or above. Wean as tolerated to goal. Monitor with continuous pulse ox. Supportive care to include antipyretics, bronchodilators, expectorants, and supplementation of Zinc, vitamins C and D. Trend acute phase reactants Increased O2 requirements are noted. Transition to ICU will be considered if patient is unable to acheive adequate oxygenation on 15 L High flow nasal cannula. (2) Acute respiratory failure: Qualifiers: Respiratory failure complication: hypoxia Qualified Code(s): J96.01 - Acute respiratory failure with hypoxia Code(s): J96.00 - Acute respiratory failure, unspecified whether with hypoxia or hypercapnia Status: Acute Assessment and Plan: Secondary to above. Continue supplemental O2 as above. Wean to goal. (3) Moderate persistent asthma: Qualifiers: Asthma complication type: unspecified Qualified Code(s): J45.40 - Moderate persistent asthma, uncomplicated Code(s): J45.40 - Moderate persistent asthma, uncomplicated Status: Acute Assessment and Plan: Not in acute exacerbation. Continue her home Symbicort. Albuterol scheduled as above (4) Obesity (BMI 30.0-34.9): Code(s): E66.9 - Obesity, unspecified Status: Chronic Assessment and Plan: Healthy lifestyle modifications are encouraged. Subjective Date/time seen: 04/15/20 10:58 Interval history: Date of service: 04/15/2020 Renata Latif is a 59 year old female with a history of asthma who is seen in follow up for COVID-19 pneumonia. She reports that she is feeling the same today. She has been frustrated because her oxygen has been leaking water through the tubing and this has sprayed her in the face. I spoke with respiratory therapy and they were able to correct this problem. The patient has been taking her oxygen off and on intermittently, which causes her to have desaturations. We discussed the absolute importance of keeping the nasal cannula on at all times. She still feels short of breath and is experiencing BRICENO with minimal exertion. She is still having productive cough with sputum production that is lightening in color. She feels a little bit lightheaded after getting up and moving around today. She denies dizziness. She has a mild headache. She is eating and drinking well. I spoke with her daughter via phone with the patient's permission to provide updates and answer questions. Review of Systems Review of Systems: All systems reviewed & are unremarkable except as noted in HPI and below Exam Narrative: Exam Narrative: Ms. Latif is a well-nourished, well-appearing 59-year-old female who is resting comfortably sitting up on the couch. She appears comfortable and is in NARD. HR 72, BP 104/52, RR 22, T 98.5?, 91% on 15 L Neuro: awake, alert and oriented x4, speech clear, no focal neur
[2020-04-15] MEDS: ENOXAPARIN 40 MG/0.4 ML SYRINGE SUB-Q (23:37)
[2020-04-16] VITALS (10 sets, daily range): BP systolic 109–142; BP diastolic 60–83; PULSE 64–84; RESP 18–20; TEMP 36.4–36.8; O2SAT 88–97
[2020-04-16 06:27] LABS: Alanine Aminotransferase 20 U/L (4-35); Albumin Level 3.3 g/dL (3.5-5.1); Alkaline Phosphatase 75 U/L (38-126); Anion Gap 8 mmol/L (8-16); Aspartate Amino Transferase 17 U/L (14-36); Blood Urea Nitrogen 15 mg/dL (7-17); CRP 3.3 mg/dL (<1.0); Calcium 8.6 mg/dL (8.4-10.2); Carbon Dioxide 28 mmol/L (22-30); Chloride 103 mmol/L (98-107); Estimated Glomerular Filt Rate > 60; Glucose 130 mg/dL (65-105); Hematocrit 40.6 % (37.0-47.0); Hemoglobin 13.4 g/dL (12.0-15.0); Lactate Dehydrogenase 719 U/L (313-618); Mean Corpuscular Hemoglobin 28.4 pg (26-34); Mean Platelet Volume 10.1 fl (7.4-10.4); Platelet Count Result 438 k/mm3 (150-375); Potassium 3.5 mmol/L (3.4-5.0); Red Blood Count 4.72 M/mm3 (4.2-5.4); Red Cell Distribution Width 12.1 % (11.5-14.5); Sodium 139 mmol/L (137-145); White Blood Count 12.5 K/mm3 (4.5-10.0)
[2020-04-16] MEDS: ALBUTEROL SULFATE (*SP) AEROSOL 1 PUFF 2 PUFF INHALATION ×4 (07:55→20:15)
--- NOTE | 2020-04-16 08:06 | PCNWS ---
Weekly nutritional screen. Patient is tolerating current diet with adequate intake. No weight loss reported. No nutritional needs at this time.
[2020-04-16] MEDS: guaiFENesin 12 HR 600 MG TABCR PO ×2 (08:44→21:15)
[2020-04-16] MEDS: ASCORBIC ACID 500 MG TABLET PO (08:44)
[2020-04-16] MEDS: ENOXAPARIN 40 MG/0.4 ML SYRINGE SUB-Q ×2 (08:44→21:15)
[2020-04-16] MEDS: DEXAMETHASONE 2 MG TABLET 6 MG PO (08:44)
[2020-04-16] MEDS: FAMOTIDINE 20 MG TABLET PO ×2 (08:44→17:28)
[2020-04-16] MEDS: LIDOCAINE 5% PATCH 1 PATCH TRANSDERM (08:44)
[2020-04-16] MEDS: ZINC SULFATE 220 MG CAPSULE PO (08:44)
[2020-04-16] MEDS: CHOLECALCIFEROL 1,000 UNITS TABLET 1000 UNITS PO (08:44)
--- NOTE | 2020-04-16 10:36 | PC.NURSE ---
0893 pt states she feels she is struggling to breath , pt on 15l n/c ,applied 15 l nonrebreather. pt states she already feels like she is struggling less.
[2020-04-16 10:42] LABS: Alveolar/Arterial O2 Gradient 626.1 mmHg; Base Excess ABG 0.5 mEq/l (+/-2.0); Fractional Inspired Oxygen 100 %; HCO3 ABG 22.4 mEq/l (22.0-26.0); Oxygen Content ABG 17.5 %vol (16.0-22.0); Oxyhemoglobin 90.3 % THb (90.0-100.0); PCO2 ABG 28.7 mmHg (35.0-45.0); PO2 ABG 58.2 mmHg (80.0-100.0); PO2 FiO2 Ratio Arterial Blood 0.58 %; Total Hemoglobin 13.8 g/dL (12.0-18.0)
[2020-04-16 10:43] LABS: Device HIGH FLOW NASAL CANN; Modified Allen's Test Pass; Site Drawn RIGHT RADIAL
--- NOTE | 2020-04-16 13:58 | PM.IMPN ---
Progress Note: A&P Assessment and Plan (1) Pneumonia due to 2019 novel coronavirus: Code(s): U07.1 - COVID-19; J12.89 - Other viral pneumonia Status: Acute Assessment and Plan: Patient presented with worsening shortness of breath and COVID positive contacts. She had been symptomatic approximately 7 days prior to presentation. Chest x-ray showed bilateral hazy airspace opacities and diffuse lung disease. She is afebrile. Blood tinged sputum secondary to productive cough has resolved. Repeat CXR 04/14 showed moderate amount of diffuse ill-defined airspace disease with slight progression from prior CXR. She is maintaining adequate oxygenation on 15L high flow nasal cannula. Non-rebreather placed over NC today which has helped her maintain adequate O2 sats in the 92-94% range with fewer episodes of desaturation. Continue dexamethasone (day 8) for up to 10 days She completed 5 days of remdesivir on 04/13 Supplemental O2 as needed with goal saturation 90% or above. Wean as tolerated to goal. Monitor with continuous pulse ox. Supportive care to include antipyretics, bronchodilators, expectorants, and supplementation of Zinc, vitamins C and D. Trend acute phase reactants Increased O2 requirements noted. Transition to ICU has been considered and will be pursued if patient is unable to maintain adequate oxygenation on 15 L High flow nasal cannula. (2) Acute respiratory failure: Qualifiers: Respiratory failure complication: hypoxia Qualified Code(s): J96.01 - Acute respiratory failure with hypoxia Code(s): J96.00 - Acute respiratory failure, unspecified whether with hypoxia or hypercapnia Status: Acute Assessment and Plan: Secondary to above. Continue supplemental O2 as above. Wean to goal. (3) Moderate persistent asthma: Qualifiers: Asthma complication type: unspecified Qualified Code(s): J45.40 - Moderate persistent asthma, uncomplicated Code(s): J45.40 - Moderate persistent asthma, uncomplicated Status: Acute Assessment and Plan: Not in acute exacerbation. Continue her home Symbicort. Albuterol scheduled as above (4) Obesity (BMI 30.0-34.9): Code(s): E66.9 - Obesity, unspecified Status: Chronic Assessment and Plan: Healthy lifestyle modifications are encouraged. Subjective Date/time seen: 04/16/20 13:58 Interval history: Date of service: 04/16/2020 Renata Latif is a 59 year old female with a history of asthma who is seen in follow up for COVID-19 pneumonia. she is feeling better today. She feels that she is breathing much easier. She is coughing much less and has had no sputum production today. She denies chest pain. She has no lightheadedness today. She seems to be doing much better with the non-rebreather mask over the nasal cannula. No headache, fever, chills, nausea, vomiting, or abdominal pain. Appetite is good. She is in good spirits today and says she is feeling more like herself. Review of Systems Review of Systems: All systems reviewed & are unremarkable except as noted in HPI and below Exam Narrative: Exam Narrative: Ms. Latif is a well-nourished, well-appearing 59-year-old female who is resting comfortably sitting up on the couch. She appears comfortable and is in NARD. HR 70, BP 142/64, RR 20, T 97.5?, 94% on 15 L Neuro: awake, alert and oriented x4, speech clear, no focal neuro deficits noted HEENMT: normocephalic, atraumatic, EOMI, sclerae anicteric, moist oral mucosa, tongue midline, nares patent Neck: supple, no lymphadenopathy Respiratory: diminished breath sounds bilaterally, no crackles, rhonchi, or wheezes, nonlabored breathing, able to speak in full sentences Cardio: regular rate, regular rhythm with S1-S2 Abdomen: nondistended, normoactive bowel sounds, soft, nontender to palpation, no rigidity or guarding Extremities: no edema, erythema, cyanosis, clubbing, or tenderne
[2020-04-16] MEDS: WATER FOR IRRIGATION, STERILE 1,000 ML BOTTLE 1000 ML (20:47)
[2020-04-17] VITALS (9 sets, daily range): BP systolic 103–121; BP diastolic 51–85; PULSE 56–80; RESP 16–20; TEMP 36.4–37; O2SAT 91–99
[2020-04-17 06:25] LABS: Basophils Percent Auto 0.1 % (0.2-1.2); Eosinophils Absolute Auto 0.1 K/mm3 (0-0.3); Eosinophils Percent Auto 0.5 % (0-4.4); Hematocrit 40.8 % (37.0-47.0); Immature Granulocyte Absolute 0.25 K/mm3 (0.00-0.031); Immature Granulocyte Percent A 1.6 % (0-0.5); Lymphocytes Absolute Auto 1.85 K/mm3 (0.9-3.2); Lymphocytes Percent Auto 11.9 % (18.3-44.2); Mean Corpuscular HGB Conc 31.9 g/dl (32-36); Mean Corpuscular Hemoglobin 27.6 pg (26-34); Mean Corpuscular Volume 86.6 fl (80-100); Mean Platelet Volume 10.1 fl (7.4-10.4); Monocytes Absolute Auto 0.9 K/mm3 (0.1-0.6); Monocytes Percent Auto 5.5 % (2.6-8.5); Neutrophils Absolute Auto 12.5 K/mm3 (1.3-6.7); Neutrophils Percent Auto 80.4 % (45.5-73.1); Platelet Count Result 441 k/mm3 (150-375); Red Blood Count 4.71 M/mm3 (4.2-5.4); Red Cell Distribution Width 12.3 % (11.5-14.5); White Blood Count 15.5 K/mm3 (4.5-10.0)
[2020-04-17 06:41] LABS: Alanine Aminotransferase 18 U/L (4-35); Albumin Level 3.3 g/dL (3.5-5.1); Alkaline Phosphatase 76 U/L (38-126); Anion Gap 6 mmol/L (8-16); Aspartate Amino Transferase 17 U/L (14-36); Bilirubin,Total 1.1 mg/dL (0.2-1.3); Blood Urea Nitrogen 16 mg/dL (7-17); CRP 5.5 mg/dL (<1.0); Calcium 8.6 mg/dL (8.4-10.2); Carbon Dioxide 28 mmol/L (22-30); Chloride 103 mmol/L (98-107); Estimated Glomerular Filt Rate > 60; Glucose 120 mg/dL (65-105); Lactate Dehydrogenase 709 U/L (313-618); Potassium 3.5 mmol/L (3.4-5.0); Sodium 137 mmol/L (137-145)
[2020-04-17] MEDS: DEXAMETHASONE 2 MG TABLET 6 MG PO (08:18)
[2020-04-17] MEDS: ASCORBIC ACID 500 MG TABLET PO (08:19)
[2020-04-17] MEDS: CHOLECALCIFEROL 1,000 UNITS TABLET 1000 UNITS PO (08:20)
[2020-04-17] MEDS: ENOXAPARIN 40 MG/0.4 ML SYRINGE SUB-Q ×2 (08:20→20:31)
[2020-04-17] MEDS: FAMOTIDINE 20 MG TABLET PO ×2 (08:20→16:27)
[2020-04-17] MEDS: LIDOCAINE 5% PATCH 1 PATCH TRANSDERM (08:22)
[2020-04-17] MEDS: ZINC SULFATE 220 MG CAPSULE PO (08:22)
[2020-04-17] MEDS: guaiFENesin 12 HR 600 MG TABCR PO ×2 (08:23→20:31)
[2020-04-17] MEDS: ALBUTEROL SULFATE (*SP) AEROSOL 1 PUFF 2 PUFF INHALATION ×4 (08:25→22:06)
--- NOTE | 2020-04-17 10:19 | PM.IMPN ---
Progress Note: A&P Assessment and Plan (1) Pneumonia due to 2019 novel coronavirus: Code(s): U07.1 - COVID-19; J12.89 - Other viral pneumonia Status: Acute Assessment and Plan: Patient presented with worsening shortness of breath and COVID positive contacts. She had been symptomatic approximately 7 days prior to presentation. Chest x-ray showed bilateral hazy airspace opacities and diffuse lung disease. She is afebrile. Blood tinged sputum secondary to productive cough has resolved. Repeat CXR 04/14 showed moderate amount of diffuse ill-defined airspace disease with slight progression from prior CXR. She is maintaining adequate oxygenation on 15L high flow nasal cannula. Non-rebreather placed over NC hich has helped her maintain adequate O2 sats in the 91-95% range with fewer episodes of desaturation. Continue dexamethasone (day 9) for up to 10 days She completed 5 days of remdesivir on 04/13 Supplemental O2 as needed with goal saturation 90% or above. Wean as tolerated to goal. Monitor with continuous pulse ox. Supportive care to include antipyretics, bronchodilators, expectorants, and supplementation of Zinc, vitamins C and D. Incentive spirometry Trend acute phase reactants. Slight increase in inflammatory markers noted today. Increased O2 requirements noted. Transition to ICU has been considered and will be pursued if patient is unable to maintain adequate oxygenation on 15 L High flow nasal cannula. Case discussed with talent engineer and supervising physician. (2) Acute respiratory failure: Qualifiers: Respiratory failure complication: hypoxia Qualified Code(s): J96.01 - Acute respiratory failure with hypoxia Code(s): J96.00 - Acute respiratory failure, unspecified whether with hypoxia or hypercapnia Status: Acute Assessment and Plan: Secondary to above. Continue supplemental O2 as above. Wean to goal. (3) Moderate persistent asthma: Qualifiers: Asthma complication type: unspecified Qualified Code(s): J45.40 - Moderate persistent asthma, uncomplicated Code(s): J45.40 - Moderate persistent asthma, uncomplicated Status: Acute Assessment and Plan: Not in acute exacerbation. Continue her home Symbicort. Albuterol scheduled as above (4) Obesity (BMI 30.0-34.9): Code(s): E66.9 - Obesity, unspecified Status: Chronic Assessment and Plan: Healthy lifestyle modifications are encouraged. Subjective Date/time seen: 04/17/20 10:19 Interval history: Date of service: 04/17/2020 Renata Latif is a 59 year old female with a history of asthma who is seen in follow up for COVID-19 pneumonia. She continues to improve today. She is feeling much better and her SOB has improved. Cough has lessened and she has no sputum production. She has a mild frontal headache. Denies congestion. No chest pain or palpitations. No lightheadedness at rest or with activity. She feels she is getting around better. Her appetite is good. She has not had a bowel movement in several days. She is passing gas. She denies abdominal pain, distension, or cramping. No N/V/F/C. Review of Systems Review of Systems: All systems reviewed & are unremarkable except as noted in HPI and below Exam Narrative: Exam Narrative: Ms. Latif is a well-nourished, well-appearing 59-year-old female who is resting comfortably sitting up on the couch. She appears comfortable and is in NARD. HR 70, BP 105/73, RR 18, T 97.8?, 91% on 15 L Neuro: awake, alert and oriented x4, speech clear, no focal neuro deficits noted HEENMT: normocephalic, atraumatic, EOMI, sclerae anicteric, moist oral mucosa, tongue midline, nares patent Neck: supple, no lymphadenopathy Respiratory: diminished breath sounds bilaterally, no crackles, rhonchi, or wheezes, nonlabored breathing Cardio: regular rate, regular rhythm with S1-S2 Abdomen: nondistended, normoactive bowel sounds, soft, non
[2020-04-18] VITALS (10 sets, daily range): BP systolic 101–115; BP diastolic 56–66; PULSE 52–73; RESP 16–20; TEMP 36.3–37.3; O2SAT 90–96
[2020-04-18 06:55] LABS: Hematocrit 40.7 % (37.0-47.0); Hemoglobin 13.1 g/dL (12.0-15.0); Mean Corpuscular HGB Conc 32.2 g/dl (32-36); Mean Corpuscular Hemoglobin 28.4 pg (26-34); Mean Corpuscular Volume 88.3 fl (80-100); Mean Platelet Volume 10.3 fl (7.4-10.4); Platelet Count Result 409 k/mm3 (150-375); Red Blood Count 4.61 M/mm3 (4.2-5.4); Red Cell Distribution Width 12.4 % (11.5-14.5); White Blood Count 11.9 K/mm3 (4.5-10.0)
[2020-04-18 07:19] LABS: Alanine Aminotransferase 16 U/L (4-35); Albumin Level 3.1 g/dL (3.5-5.1); Alkaline Phosphatase 75 U/L (38-126); Anion Gap 6 mmol/L (8-16); Aspartate Amino Transferase 15 U/L (14-36); Blood Urea Nitrogen 15 mg/dL (7-17); CRP 6.5 mg/dL (<1.0); Calcium 8.5 mg/dL (8.4-10.2); Carbon Dioxide 30 mmol/L (22-30); Chloride 103 mmol/L (98-107); Estimated Glomerular Filt Rate > 60; Glucose 114 mg/dL (65-105); Lactate Dehydrogenase 596 U/L (313-618); Potassium 3.6 mmol/L (3.4-5.0); Sodium 139 mmol/L (137-145)
[2020-04-18] MEDS: ALBUTEROL SULFATE (*SP) AEROSOL 1 PUFF 2 PUFF INHALATION ×4 (08:11→22:18)
[2020-04-18] MEDS: ASCORBIC ACID 500 MG TABLET PO (09:58)
[2020-04-18] MEDS: DEXAMETHASONE 2 MG TABLET 6 MG PO (09:58)
[2020-04-18] MEDS: ZINC SULFATE 220 MG CAPSULE PO (09:58)
[2020-04-18] MEDS: guaiFENesin 12 HR 600 MG TABCR PO ×2 (09:59→22:09)
[2020-04-18] MEDS: ENOXAPARIN 40 MG/0.4 ML SYRINGE SUB-Q ×2 (09:59→22:09)
[2020-04-18] MEDS: CHOLECALCIFEROL 1,000 UNITS TABLET 1000 UNITS PO (09:59)
[2020-04-18] MEDS: LIDOCAINE 5% PATCH 1 PATCH TRANSDERM (09:59)
[2020-04-18] MEDS: FAMOTIDINE 20 MG TABLET PO ×2 (09:59→17:59)
--- NOTE | 2020-04-18 11:00 | PM.IMPN ---
Progress Note: A&P Assessment and Plan (1) Pneumonia due to 2019 novel coronavirus: Code(s): U07.1 - COVID-19; J12.89 - Other viral pneumonia Status: Acute Assessment and Plan: Patient presented with worsening shortness of breath and COVID positive contacts. She had been symptomatic approximately 7 days prior to presentation. Chest x-ray showed bilateral hazy airspace opacities and diffuse lung disease. She is afebrile. Blood tinged sputum secondary to productive cough has resolved. Repeat CXR 04/14 showed moderate amount of diffuse ill-defined airspace disease with slight progression from prior CXR. She is maintaining adequate oxygenation on 15L high flow nasal cannula. Non-rebreather placed over NC which has helped her maintain adequate O2 sats in the 91-95% range with fewer episodes of desaturation. She completed 10 days of dexamethasone today. She completed 5 days of remdesivir on 04/13 Supplemental O2 as needed with goal saturation 90% or above. Wean as tolerated to goal. Monitor with continuous pulse ox. Supportive care to include antipyretics, bronchodilators, expectorants, and supplementation of Zinc, vitamins C and D. Incentive spirometry Trend acute phase reactants. Increased O2 requirements noted. Transition to ICU has been considered and will be pursued if patient is unable to maintain adequate oxygenation on 15 L High flow nasal cannula. Case discussed with dental amalgam processor and supervising physician. (2) Acute respiratory failure: Qualifiers: Respiratory failure complication: hypoxia Qualified Code(s): J96.01 - Acute respiratory failure with hypoxia Code(s): J96.00 - Acute respiratory failure, unspecified whether with hypoxia or hypercapnia Status: Acute Assessment and Plan: Secondary to above. Continue supplemental O2 as above. Wean to goal. (3) Moderate persistent asthma: Qualifiers: Asthma complication type: unspecified Qualified Code(s): J45.40 - Moderate persistent asthma, uncomplicated Code(s): J45.40 - Moderate persistent asthma, uncomplicated Status: Acute Assessment and Plan: Not in acute exacerbation. Continue her home Symbicort. Albuterol scheduled as above (4) Obesity (BMI 30.0-34.9): Code(s): E66.9 - Obesity, unspecified Status: Chronic Assessment and Plan: Healthy lifestyle modifications are encouraged. Subjective Date/time seen: 04/18/20 11:00 Interval history: Date of service: 04/18/2020 Renata Latif is a 59 year old female with a history of asthma who is seen in follow up for COVID-19 pneumonia. She continues to display improvement and is feeling better each day. Today she denies shortness of breath while at rest. She reports very minimal cough with scant clear sputum production. She was able to ambulate from her bed to the restroom with minimal BRICENO. She is occasionally still having some lightheadedness with exertion. She still has not had a bowel movement but is passing gas and denies abdominal cramping or bloating. No urinary symptoms. She has a good appetite. She has been enjoying watching cooking shows on TV. Review of Systems Review of Systems: All systems reviewed & are unremarkable except as noted in HPI and below Exam Narrative: Exam Narrative: Ms. Latif is a well-nourished, well-appearing 59-year-old female who is sitting up at the bedside. She appears comfortable and is in NARD. HR 60 Yolie BP 101/62, RR 20, T 98.7?, 91% on 15 L Neuro: awake, alert and oriented x4, speech clear, no focal neuro deficits noted HEENMT: normocephalic, atraumatic, EOMI, sclerae anicteric, moist oral mucosa, tongue midline, nares patent Neck: supple, no lymphadenopathy Respiratory: diminished breath sounds bilaterally, no crackles, rhonchi, or wheezes, nonlabored breathing Cardio: regular rate, regular rhythm with S1-S2 Abdomen: nondistended, normoactive bowel sounds, soft
[2020-04-18] MEDS: polyethylene glycoL 3350 17 GM POWD.PACK PO (13:06)
[2020-04-18] MEDS: DOCUSATE SODIUM 100 MG CAPSULE PO (22:09)
[2020-04-18 22:57] LABS: Glucose Point of Care 287 (65-105)
[2020-04-19] VITALS (10 sets, daily range): BP systolic 103–131; BP diastolic 58–71; PULSE 57–80; RESP 18–20; TEMP 36.4–36.8; O2SAT 90–96
[2020-04-19 06:22] LABS: Hematocrit 40.7 % (37.0-47.0); Hemoglobin 13.2 g/dL (12.0-15.0); Mean Corpuscular HGB Conc 32.4 g/dl (32-36); Mean Corpuscular Hemoglobin 28.6 pg (26-34); Mean Corpuscular Volume 88.3 fl (80-100); Mean Platelet Volume 10.1 fl (7.4-10.4); Platelet Count Result 409 k/mm3 (150-375); Red Blood Count 4.61 M/mm3 (4.2-5.4); Red Cell Distribution Width 12.5 % (11.5-14.5); White Blood Count 9.4 K/mm3 (4.5-10.0)
[2020-04-19 06:33] LABS: Alanine Aminotransferase 17 U/L (4-35); Albumin Level 3.2 g/dL (3.5-5.1); Alkaline Phosphatase 73 U/L (38-126); Anion Gap 6 mmol/L (8-16); Aspartate Amino Transferase 15 U/L (14-36); Blood Urea Nitrogen 14 mg/dL (7-17); CRP 6.8 mg/dL (<1.0); Calcium 8.8 mg/dL (8.4-10.2); Carbon Dioxide 30 mmol/L (22-30); Chloride 102 mmol/L (98-107); Estimated Glomerular Filt Rate > 60; Glucose 134 mg/dL (65-105); Lactate Dehydrogenase 597 U/L (313-618); Potassium 3.9 mmol/L (3.4-5.0); Sodium 138 mmol/L (137-145)
[2020-04-19] MEDS: DOCUSATE SODIUM 100 MG CAPSULE PO (09:30)
[2020-04-19] MEDS: ENOXAPARIN 40 MG/0.4 ML SYRINGE SUB-Q ×2 (09:30→21:35)
[2020-04-19] MEDS: CHOLECALCIFEROL 1,000 UNITS TABLET 1000 UNITS PO (09:30)
[2020-04-19] MEDS: ASCORBIC ACID 500 MG TABLET PO (09:30)
[2020-04-19] MEDS: ZINC SULFATE 220 MG CAPSULE PO (09:31)
[2020-04-19] MEDS: guaiFENesin 12 HR 600 MG TABCR PO ×2 (09:31→21:35)
[2020-04-19] MEDS: LIDOCAINE 5% PATCH 1 PATCH TRANSDERM (09:31)
[2020-04-19] MEDS: polyethylene glycoL 3350 17 GM POWD.PACK PO (09:31)
[2020-04-19] MEDS: FAMOTIDINE 20 MG TABLET PO ×2 (09:31→15:53)
[2020-04-19] MEDS: ALBUTEROL SULFATE (*SP) AEROSOL 1 PUFF 2 PUFF INHALATION ×4 (09:49→22:49)
--- NOTE | 2020-04-19 16:29 | PM.IMPN ---
Progress Note: A&P Assessment and Plan (1) Pneumonia due to 2019 novel coronavirus: Code(s): U07.1 - COVID-19; J12.89 - Other viral pneumonia Status: Acute Assessment and Plan: Patient presented with worsening shortness of breath and COVID positive contacts. She had been symptomatic approximately 7 days prior to presentation. Chest x-ray showed bilateral hazy airspace opacities and diffuse lung disease. She is afebrile. Blood tinged sputum secondary to productive cough has resolved. Repeat CXR 04/14 showed moderate amount of diffuse ill-defined airspace disease with slight progression from prior CXR. She is maintaining adequate oxygenation on 15L high flow nasal cannula. Non-rebreather placed over NC which has helped her maintain adequate O2 sats in the 91-95% range with fewer episodes of desaturation. She completed 10 days of dexamethasone on 04/18. She completed 5 days of remdesivir on 04/13 Supplemental O2 as needed with goal saturation 90% or above. Wean as tolerated to goal. Monitor with continuous pulse ox. Continue close monitoring. Supportive care to include antipyretics, bronchodilators, expectorants, and supplementation of Zinc, vitamins C and D. Incentive spirometry Trend acute phase reactants. Increased O2 requirements noted. Transition to ICU has been considered and will be pursued if patient is unable to maintain adequate oxygenation on 15 L High flow nasal cannula. Case has been discussed with meal grinder tender and supervising physician. (2) Acute respiratory failure: Qualifiers: Respiratory failure complication: hypoxia Qualified Code(s): J96.01 - Acute respiratory failure with hypoxia Code(s): J96.00 - Acute respiratory failure, unspecified whether with hypoxia or hypercapnia Status: Acute Assessment and Plan: Secondary to above. Continue supplemental O2 as above. Wean to goal. (3) Moderate persistent asthma: Qualifiers: Asthma complication type: unspecified Qualified Code(s): J45.40 - Moderate persistent asthma, uncomplicated Code(s): J45.40 - Moderate persistent asthma, uncomplicated Status: Acute Assessment and Plan: Not in acute exacerbation. Continue her home Symbicort. Albuterol scheduled as above (4) Obesity (BMI 30.0-34.9): Code(s): E66.9 - Obesity, unspecified Status: Chronic Assessment and Plan: Healthy lifestyle modifications are encouraged. Subjective Date/time seen: 04/19/20 16:29 Interval history: Date of service: 04/19/2020 Renata Latif is a 59 year old female with a history of asthma who is seen in follow up for COVID-19 pneumonia. she is feeling well at this time. She is feeling better each day and denies any shortness of breath today. She has had no episodes of coughing and no sputum production. No dizziness, lightheadedness, fever, chills, nausea, vomiting. She still has not had a bowel movement in several days, although she is passing gas. She denies abdominal distention or cramping. Her appetite has been good. Review of Systems Review of Systems: All systems reviewed & are unremarkable except as noted in HPI and below Exam Narrative: Exam Narrative: Ms. Latif is a well-nourished, well-appearing 59-year-old female who is sitting up at the bedside. She appears comfortable and is in NARD. HR 57, BP 125/61, R 20, T 97.5?, 93% on 15 L Neuro: awake, alert and oriented x4, speech clear, no focal neuro deficits noted HEENMT: normocephalic, atraumatic, EOMI, sclerae anicteric, moist oral mucosa, tongue midline, nares patent Neck: supple, no lymphadenopathy Respiratory: diminished breath sounds bilaterally, no crackles, rhonchi, or wheezes, nonlabored breathing Cardio: regular rate, regular rhythm with S1-S2 Abdomen: nondistended, normoactive bowel sounds, soft, nontender to palpation, no rigidity or guarding Extremities: no edema, erythema, cyanosis, clubbing, or
[2020-04-19] MEDS: SENNA/DOCUSATE SODIUM TABLET 1 TAB PO (21:35)
[2020-04-20] VITALS (9 sets, daily range): BP systolic 92–122; BP diastolic 58–66; PULSE 75–94; RESP 18–24; TEMP 36.7–37.2; O2SAT 89–98
[2020-04-20 07:34] LABS: Hematocrit 39.8 % (37.0-47.0); Hemoglobin 12.7 g/dL (12.0-15.0); Mean Corpuscular HGB Conc 31.9 g/dl (32-36); Mean Corpuscular Hemoglobin 28.2 pg (26-34); Mean Corpuscular Volume 88.2 fl (80-100); Mean Platelet Volume 10.5 fl (7.4-10.4); Platelet Count Result 383 k/mm3 (150-375); Red Blood Count 4.51 M/mm3 (4.2-5.4); Red Cell Distribution Width 12.7 % (11.5-14.5); White Blood Count 10.2 K/mm3 (4.5-10.0)
[2020-04-20] MEDS: ALBUTEROL SULFATE (*SP) AEROSOL 1 PUFF 2 PUFF INHALATION ×4 (08:11→22:15)
[2020-04-20 08:14] LABS: Alanine Aminotransferase 17 U/L (4-35); Albumin Level 3.2 g/dL (3.5-5.1); Alkaline Phosphatase 73 U/L (38-126); Anion Gap 8 mmol/L (8-16); Aspartate Amino Transferase 19 U/L (14-36); Bilirubin,Total 1.5 mg/dL (0.2-1.3); Blood Urea Nitrogen 12 mg/dL (7-17); CRP 5.8 mg/dL (<1.0); Calcium 8.7 mg/dL (8.4-10.2); Carbon Dioxide 28 mmol/L (22-30); Chloride 101 mmol/L (98-107); Estimated Glomerular Filt Rate > 60; Glucose 102 mg/dL (65-105); Lactate Dehydrogenase 637 U/L (313-618); Potassium 3.9 mmol/L (3.4-5.0); Sodium 137 mmol/L (137-145)
[2020-04-20] MEDS: ASCORBIC ACID 500 MG TABLET PO (08:52)
[2020-04-20] MEDS: CHOLECALCIFEROL 1,000 UNITS TABLET 1000 UNITS PO (08:53)
[2020-04-20] MEDS: ENOXAPARIN 40 MG/0.4 ML SYRINGE SUB-Q ×2 (08:53→21:48)
[2020-04-20] MEDS: FAMOTIDINE 20 MG TABLET PO ×2 (08:53→16:46)
[2020-04-20] MEDS: polyethylene glycoL 3350 17 GM POWD.PACK PO (08:54)
[2020-04-20] MEDS: LIDOCAINE 5% PATCH 1 PATCH TRANSDERM (08:54)
[2020-04-20] MEDS: guaiFENesin 12 HR 600 MG TABCR PO (08:54)
[2020-04-20] MEDS: ZINC SULFATE 220 MG CAPSULE PO (08:55)
--- NOTE | 2020-04-20 16:00 | PM.IMPN ---
Progress Note: A&P Assessment and Plan (1) Pneumonia due to 2019 novel coronavirus: Code(s): U07.1 - COVID-19; J12.89 - Other viral pneumonia Status: Acute Assessment and Plan: Patient presented with worsening shortness of breath and COVID positive contacts. She had been symptomatic approximately 7 days prior to presentation. Chest x-ray showed bilateral hazy airspace opacities and diffuse lung disease. She has remained afebrile. Blood tinged sputum secondary to productive cough has resolved. Repeat CXR 04/14 showed moderate amount of diffuse ill-defined airspace disease with slight progression from prior CXR. She is maintaining adequate oxygenation on 15L high flow nasal cannula. Non-rebreather placed over NC which has helped her maintain adequate O2 sats in the 91-95% range with fewer episodes of desaturation. She completed 10 days of dexamethasone on 04/18. She completed 5 days of remdesivir on 04/13 Supplemental O2 as needed with goal saturation 90% or above. Wean as tolerated to goal. Monitor with continuous pulse ox. Continue close monitoring. Supportive care to include antipyretics, bronchodilators, expectorants, and supplementation of Zinc, vitamins C and D. Incentive spirometry Trend acute phase reactants. Transition to ICU has been considered due to high O2 requirements and will be pursued if patient is unable to maintain adequate oxygenation on 15 L High flow nasal cannula. Case has been discussed with robotic welder and supervising physician. She is stable on medical floor at this time. (2) Acute respiratory failure: Qualifiers: Respiratory failure complication: hypoxia Qualified Code(s): J96.01 - Acute respiratory failure with hypoxia Code(s): J96.00 - Acute respiratory failure, unspecified whether with hypoxia or hypercapnia Status: Acute Assessment and Plan: Secondary to above. Continue supplemental O2 as above. Wean to goal. (3) Moderate persistent asthma: Qualifiers: Asthma complication type: unspecified Qualified Code(s): J45.40 - Moderate persistent asthma, uncomplicated Code(s): J45.40 - Moderate persistent asthma, uncomplicated Status: Acute Assessment and Plan: Not in acute exacerbation. Continue her home Symbicort. Albuterol scheduled as above (4) Obesity (BMI 30.0-34.9): Code(s): E66.9 - Obesity, unspecified Status: Chronic Assessment and Plan: Healthy lifestyle modifications are encouraged. Subjective Date/time seen: 04/20/20 16:00 Interval history: Date of service: 04/20/2020 Renata Latif is a 59 year old female with a history of asthma who is seen in follow up for COVID-19 pneumonia. continues to feel improved. She states that she feels like a new woman today. She is in good spirits. She denies shortness of breath, cough, or sputum production. She denies any dizziness or lightheadedness. She denies fever, chills, nausea, vomiting. She had a bowel movement this morning and is feeling much better. She has been eating well. She denies any urinary symptoms. Review of Systems Review of Systems: All systems reviewed & are unremarkable except as noted in HPI and below Exam Narrative: Exam Narrative: Ms. Latif is a well-nourished, well-appearing 59-year-old female who is sitting up at the bedside. She appears comfortable and is in NARD. HR 80, BP 113/64, RR 20, T 99.0?, 92% on 15 L with nonrebreather Neuro: awake, alert and oriented x4, speech clear, no focal neuro deficits noted HEENMT: normocephalic, atraumatic, EOMI, sclerae anicteric, moist oral mucosa, tongue midline, nares patent Neck: supple, no lymphadenopathy Respiratory: diminished breath sounds bilaterally, no crackles, rhonchi, or wheezes, nonlabored breathing Cardio: regular rate, regular rhythm with S1-S2 Abdomen: nondistended, normoactive bowel sounds, soft, nontender to palpation, no rigidity or guardin
[2020-04-20] MEDS: DOCUSATE SODIUM 100 MG CAPSULE PO (21:48)
[2020-04-21] VITALS (12 sets, daily range): BP systolic 100–132; BP diastolic 59–76; PULSE 69–94; RESP 16–22; TEMP 36.5–36.9; O2SAT 91–100
[2020-04-21] MEDS: ALBUTEROL SULFATE (*SP) AEROSOL 1 PUFF 2 PUFF INHALATION ×4 (08:26→22:01)
[2020-04-21 08:52] LABS: Hematocrit 42.5 % (37.0-47.0); Hemoglobin 13.4 g/dL (12.0-15.0); Mean Corpuscular HGB Conc 31.5 g/dl (32-36); Mean Corpuscular Hemoglobin 28.5 pg (26-34); Mean Corpuscular Volume 90.4 fl (80-100); Mean Platelet Volume 11.4 fl (7.4-10.4); Platelet Count Result 246 k/mm3 (150-375); Red Cell Distribution Width 12.8 % (11.5-14.5); White Blood Count 10.6 K/mm3 (4.5-10.0)
[2020-04-21 09:10] LABS: Alanine Aminotransferase 17 U/L (4-35); Albumin Level 3.4 g/dL (3.5-5.1); Alkaline Phosphatase 77 U/L (38-126); Anion Gap 7 mmol/L (8-16); Aspartate Amino Transferase 19 U/L (14-36); Bilirubin,Total 1.5 mg/dL (0.2-1.3); Blood Urea Nitrogen 12 mg/dL (7-17); CRP 6.6 mg/dL (<1.0); Calcium 8.6 mg/dL (8.4-10.2); Carbon Dioxide 29 mmol/L (22-30); Chloride 100 mmol/L (98-107); Estimated Glomerular Filt Rate > 60; Glucose 100 mg/dL (65-105); Lactate Dehydrogenase 616 U/L (313-618); Potassium 3.7 mmol/L (3.4-5.0); Sodium 136 mmol/L (137-145)
[2020-04-21] MEDS: polyethylene glycoL 3350 17 GM POWD.PACK PO (10:37)
[2020-04-21] MEDS: LIDOCAINE 5% PATCH 1 PATCH TRANSDERM (10:38)
[2020-04-21] MEDS: ENOXAPARIN 40 MG/0.4 ML SYRINGE SUB-Q ×2 (10:38→22:01)
[2020-04-21] MEDS: FAMOTIDINE 20 MG TABLET PO ×2 (10:38→17:47)
[2020-04-21] MEDS: CHOLECALCIFEROL 1,000 UNITS TABLET 1000 UNITS PO (10:39)
[2020-04-21] MEDS: ZINC SULFATE 220 MG CAPSULE PO (10:39)
[2020-04-21] MEDS: ASCORBIC ACID 500 MG TABLET PO (10:39)
[2020-04-21] MEDS: DOCUSATE SODIUM 100 MG CAPSULE PO ×2 (10:42→22:01)
--- NOTE | 2020-04-21 10:43 | PM.IMPN ---
Progress Note: A&P Assessment and Plan (1) Pneumonia due to 2019 novel coronavirus: Code(s): U07.1 - COVID-19; J12.89 - Other viral pneumonia Status: Acute Assessment and Plan: Patient presented with worsening shortness of breath and COVID positive contacts. She had been symptomatic approximately 7 days prior to presentation. Chest x-ray showed bilateral hazy airspace opacities and diffuse lung disease. She has remained afebrile. Blood tinged sputum secondary to productive cough has resolved. Repeat CXR 04/14 showed moderate amount of diffuse ill-defined airspace disease with slight progression from prior CXR. She had advancing O2 requirements and on 04/13 she was increased to 15 L high flow nasal cannula with non-rebreather to maintain stable O2 sats. Today, she has been weaned to 10 L high flow nasal cannula and is tolerating well. Supplemental O2 as needed with goal saturation 90% or above. Wean as tolerated to goal. Monitor with continuous pulse ox. Continue close monitoring. Patient tolerating weaning trial. She completed 10 days of dexamethasone on 04/18. She completed 5 days of remdesivir on 04/13 Supportive care to include antipyretics, bronchodilators, expectorants, and supplementation of Zinc, vitamins C and D. Incentive spirometry Trend acute phase reactants. Transition to ICU has been considered due to high O2 requirements and will be pursued if patient is unable to maintain adequate oxygenation on high flow nasal cannula. Case has been discussed with labor standards director and supervising physician. She is stable on medical floor at this time. (2) Acute respiratory failure: Qualifiers: Respiratory failure complication: hypoxia Qualified Code(s): J96.01 - Acute respiratory failure with hypoxia Code(s): J96.00 - Acute respiratory failure, unspecified whether with hypoxia or hypercapnia Status: Acute Assessment and Plan: Secondary to above. Continue supplemental O2 as above. Wean to goal. (3) Moderate persistent asthma: Qualifiers: Asthma complication type: unspecified Qualified Code(s): J45.40 - Moderate persistent asthma, uncomplicated Code(s): J45.40 - Moderate persistent asthma, uncomplicated Status: Acute Assessment and Plan: Not in acute exacerbation. Continue her home Symbicort. Albuterol scheduled as above (4) Obesity (BMI 30.0-34.9): Code(s): E66.9 - Obesity, unspecified Status: Chronic Assessment and Plan: Healthy lifestyle modifications are encouraged. Subjective Date/time seen: 04/21/20 10:43 Interval history: Date of service: 04/21/2020 Renata Latif is a 59 year old female with a history of asthma who is seen in follow up for COVID-19 pneumonia. She is feeling much better today. At this time, she denies any shortness of breath or cough. she is ambulating independently. she had a bowel movement this morning. Her appetite has been good. She denies nausea, vomiting, fever, chills, dizziness, or lightheadedness. She denies chest pain or palpitations. Review of Systems Review of Systems: All systems reviewed & are unremarkable except as noted in HPI and below Exam Narrative: Exam Narrative: Ms. Latif is a well-nourished, well-appearing 59-year-old female who is sitting up at the bedside. She appears comfortable and is in NARD. HR 71, BP 117/67, RR 22, T 98.2?, 94% on 10 L HF NC with nonrebreather Neuro: awake, alert and oriented x4, speech clear, no focal neuro deficits noted HEENMT: normocephalic, atraumatic, EOMI, sclerae anicteric, moist oral mucosa, tongue midline, nares patent Neck: supple, no lymphadenopathy Respiratory: diminished breath sounds bilaterally, no crackles, rhonchi, or wheezes, nonlabored breathing Cardio: regular rate, regular rhythm with S1-S2 Abdomen: nondistended, normoactive bowel sounds, soft, nontender to palpation, no rigidity or guarding Extremities:
--- NOTE | 2020-04-21 13:21 | PCOTNOTE ---
Addendum entered by Sean Gooden OT 04/21/20 13:24: Exercise program provided per discussion with PA. Original Note: Per discussion with RN and Tech patient is independent in her room. Skilled OT is not necessary at this time. D/C OT.
--- NOTE | 2020-04-21 14:00 | PCPTNOTE ---
Pt up in room indep per Nsg. PT to be DC'd
[2020-04-22] VITALS (16 sets, daily range): BP systolic 100–129; BP diastolic 46–64; PULSE 73–88; RESP 18–22; TEMP 36.4–37.6; O2SAT 90–100
[2020-04-22 06:20] LABS: Hematocrit 36.6 % (37.0-47.0); Hemoglobin 11.7 g/dL (12.0-15.0); Mean Corpuscular Hemoglobin 28.2 pg (26-34); Mean Corpuscular Volume 88.2 fl (80-100); Mean Platelet Volume 9.9 fl (7.4-10.4); Platelet Count Result 331 k/mm3 (150-375); Red Blood Count 4.15 M/mm3 (4.2-5.4); Red Cell Distribution Width 12.6 % (11.5-14.5); White Blood Count 11.4 K/mm3 (4.5-10.0)
[2020-04-22 06:37] LABS: Alanine Aminotransferase 17 U/L (4-35); Albumin Level 3.1 g/dL (3.5-5.1); Alkaline Phosphatase 67 U/L (38-126); Anion Gap 7 mmol/L (8-16); Aspartate Amino Transferase 19 U/L (14-36); Bilirubin,Total 1.2 mg/dL (0.2-1.3); Blood Urea Nitrogen 10 mg/dL (7-17); CRP 8.6 mg/dL (<1.0); Calcium 8.6 mg/dL (8.4-10.2); Carbon Dioxide 28 mmol/L (22-30); Chloride 102 mmol/L (98-107); Estimated Glomerular Filt Rate > 60; Glucose 116 mg/dL (65-105); Lactate Dehydrogenase 567 U/L (313-618); Potassium 3.9 mmol/L (3.4-5.0); Sodium 137 mmol/L (137-145)
[2020-04-22] MEDS: ENOXAPARIN 40 MG/0.4 ML SYRINGE SUB-Q ×2 (08:37→21:22)
[2020-04-22] MEDS: CHOLECALCIFEROL 1,000 UNITS TABLET 1000 UNITS PO (08:37)
[2020-04-22] MEDS: ZINC SULFATE 220 MG CAPSULE PO (08:37)
[2020-04-22] MEDS: guaiFENesin 12 HR 600 MG TABCR PO (08:38)
[2020-04-22] MEDS: LIDOCAINE 5% PATCH 1 PATCH TRANSDERM (08:38)
[2020-04-22] MEDS: FAMOTIDINE 20 MG TABLET PO ×2 (08:38→17:19)
[2020-04-22] MEDS: ASCORBIC ACID 500 MG TABLET PO (08:38)
[2020-04-22] MEDS: ALBUTEROL SULFATE (*SP) AEROSOL 1 PUFF 2 PUFF INHALATION ×4 (08:59→21:14)
--- NOTE | 2020-04-22 12:42 | PM.IMPN ---
Progress Note: A&P Assessment and Plan (1) Pneumonia due to 2019 novel coronavirus: Code(s): U07.1 - COVID-19; J12.89 - Other viral pneumonia Status: Acute Assessment and Plan: Patient presented with worsening shortness of breath and COVID positive contacts. She was symptomatic approximately 7 days prior to presentation. Chest x-ray showed bilateral hazy airspace opacities and diffuse lung disease. Repeat CXR 04/14 showed moderate amount of diffuse ill-defined airspace disease with slight progression from prior CXR. Oxygen requirements increased to 15 liters high flow per nasal cannula with non-rebreather to maintain stable oxygen saturations on 04/13. She remained on 15 liters per nasal cannula with non-rebreather through 04/20. Weaning has been tried intermittently since 04/20. Non-rebreather was discontinued today and she is tolerating this well. She is on 13 liters high flow per nasal cannula at this time and tolerating this well. Continue supplemental oxygen as needed with goal oxygen saturation of 90% or above. Wean as tolerated to goal. Monitor closely with continuous pulse ox. She completed 10 days of dexamethasone on 04/18. She completed 5 days of remdesivir on 04/13. Continue supportive care with antipyretics, bronchodilators, expectorants, and supplementation of Zinc, vitamins C and D. Continue incentive spirometry. Continue to trend acute phase reactants. CRP is mildly increased today. LDH and ferritin have improved. LFTs are normal. Transition to ICU has been considered due to high O2 requirements and will be pursued if patient is unable to maintain adequate oxygenation on high flow nasal cannula. Case has been discussed with hydro operator and supervising physician. She is stable on medical floor at this time. (2) Acute respiratory failure: Qualifiers: Respiratory failure complication: hypoxia Qualified Code(s): J96.01 - Acute respiratory failure with hypoxia Code(s): J96.00 - Acute respiratory failure, unspecified whether with hypoxia or hypercapnia Status: Acute Assessment and Plan: Secondary to above. Continue supplemental O2 as above. Wean to goal. (3) Moderate persistent asthma: Qualifiers: Asthma complication type: unspecified Qualified Code(s): J45.40 - Moderate persistent asthma, uncomplicated Code(s): J45.40 - Moderate persistent asthma, uncomplicated Status: Acute Assessment and Plan: Not in acute exacerbation. Continue prior to admission Symbicort. Continue albuterol scheduled as above. (4) Obesity (BMI 30.0-34.9): Code(s): E66.9 - Obesity, unspecified Status: Chronic Assessment and Plan: Healthy lifestyle modifications are encouraged. (5) GERD (gastroesophageal reflux disease): Code(s): K21.9 - Gastro-esophageal reflux disease without esophagitis Status: Inactive Assessment and Plan: Continue prior to admission pepcid BID. Subjective Date/time seen: 04/22/20 12:42 Interval history: Mrs. Latif is a 59 y.o. female with PMH significant for asthma who is seen in follow-up for COVID-19 pneumonia with acute hypoxic respiratory failure. She continues to report daily improvement and feels much better overall. She is not having any chest pain, pleuritic pain, or palpitations. She denies dyspnea at rest or with exertion. She has been up ambulating in the room and tolerating this well. She reports occasional cough, productive of clear sputum. She denies subjective fever and chills. She is tolerating her diet and bowels are regular with one regular, formed bowel movement today. She calf pain and swelling. She is voiding without any urinary symptoms. She is in good spirits. She was taken off non-rebreather today and is on high-flow per nasal cannula. Review of Systems Review of Systems: All systems reviewed & are unremarkable except as noted in HPI and below Exam Narrative: E
[2020-04-22] MEDS: ACETAMINOPHEN 325 MG TABLET 650 MG PO (18:42)
[2020-04-22] MEDS: DOCUSATE SODIUM 100 MG CAPSULE PO (21:22)
[2020-04-23] VITALS (10 sets, daily range): BP systolic 100–114; BP diastolic 56–71; PULSE 70–95; RESP 16–22; TEMP 36.3–37.7; O2SAT 90–100
[2020-04-23 06:35] LABS: Basophils Percent Auto 0.1 % (0.2-1.2); Eosinophils Absolute Auto 0.2 K/mm3 (0-0.3); Eosinophils Percent Auto 2.4 % (0-4.4); Hematocrit 37.6 % (37.0-47.0); Hemoglobin 11.9 g/dL (12.0-15.0); Immature Granulocyte Absolute 0.04 K/mm3 (0.00-0.031); Immature Granulocyte Percent A 0.4 % (0-0.5); Lymphocytes Absolute Auto 1.37 K/mm3 (0.9-3.2); Mean Corpuscular HGB Conc 31.6 g/dl (32-36); Mean Corpuscular Hemoglobin 28.4 pg (26-34); Mean Corpuscular Volume 89.7 fl (80-100); Mean Platelet Volume 9.8 fl (7.4-10.4); Monocytes Absolute Auto 0.7 K/mm3 (0.1-0.6); Monocytes Percent Auto 7.7 % (2.6-8.5); Neutrophils Absolute Auto 6.8 K/mm3 (1.3-6.7); Neutrophils Percent Auto 74.4 % (45.5-73.1); Platelet Count Result 289 k/mm3 (150-375); Red Blood Count 4.19 M/mm3 (4.2-5.4); Red Cell Distribution Width 12.6 % (11.5-14.5); White Blood Count 9.1 K/mm3 (4.5-10.0)
[2020-04-23 07:45] LABS: Alanine Aminotransferase 18 U/L (4-35); Albumin Level 3.1 g/dL (3.5-5.1); Alkaline Phosphatase 71 U/L (38-126); Anion Gap 6 mmol/L (8-16); Aspartate Amino Transferase 19 U/L (14-36); Blood Urea Nitrogen 11 mg/dL (7-17); CRP 12.7 mg/dL (<1.0); Calcium 8.5 mg/dL (8.4-10.2); Carbon Dioxide 30 mmol/L (22-30); Chloride 102 mmol/L (98-107); Creatine Kinase < 20 U/L (30-135); Estimated Glomerular Filt Rate > 60; Glucose 104 mg/dL (65-105); Lactate Dehydrogenase 513 U/L (313-618); Potassium 3.9 mmol/L (3.4-5.0); Sodium 138 mmol/L (137-145)
[2020-04-23] MEDS: polyethylene glycoL 3350 17 GM POWD.PACK PO (08:46)
[2020-04-23] MEDS: guaiFENesin 12 HR 600 MG TABCR PO ×2 (08:46→21:14)
[2020-04-23] MEDS: CHOLECALCIFEROL 1,000 UNITS TABLET 1000 UNITS PO (08:47)
[2020-04-23] MEDS: ENOXAPARIN 40 MG/0.4 ML SYRINGE SUB-Q ×2 (08:47→21:11)
[2020-04-23] MEDS: LIDOCAINE 5% PATCH 1 PATCH TRANSDERM (08:47)
[2020-04-23] MEDS: ZINC SULFATE 220 MG CAPSULE PO (08:47)
[2020-04-23] MEDS: ASCORBIC ACID 500 MG TABLET PO (08:47)
[2020-04-23] MEDS: FAMOTIDINE 20 MG TABLET PO ×2 (08:47→17:47)
[2020-04-23] MEDS: DOCUSATE SODIUM 100 MG CAPSULE PO ×2 (08:47→21:10)
[2020-04-23] MEDS: ALBUTEROL SULFATE (*SP) AEROSOL 1 PUFF 2 PUFF INHALATION ×3 (09:21→21:06)
--- NOTE | 2020-04-23 10:59 | PCNWS ---
Weekly nutritional screen. Patient is tolerating current diet with adequate intake. No weight loss reported. No nutritional needs at this time.
--- NOTE | 2020-04-23 11:30 | PM.IMPN ---
Progress Note: A&P Assessment and Plan (1) Pneumonia due to 2019 novel coronavirus: Code(s): U07.1 - COVID-19; J12.89 - Other viral pneumonia Status: Acute Assessment and Plan: Patient presented with worsening shortness of breath and COVID positive contacts. She was symptomatic approximately 7 days prior to presentation. Chest x-ray showed bilateral hazy airspace opacities and diffuse lung disease. Repeat CXR 04/14 showed moderate amount of diffuse ill-defined airspace disease with slight progression from prior CXR. Oxygen requirements increased to 15 liters high flow per nasal cannula with non-rebreather to maintain stable oxygen saturations on 04/13. She remained on 15 liters per nasal cannula with non-rebreather through 04/20. Weaning has been tried intermittently since 04/20. Non-rebreather was discontinued 04/22. She is tolerating this well. She is on 12 liters high flow per nasal cannula today and was unable to be weaned. Continue supplemental oxygen as needed with goal oxygen saturation of 90% or above. Wean as tolerated to goal. Monitor closely with continuous pulse ox. She completed 10 days of dexamethasone on 04/18. She completed 5 days of remdesivir on 04/13. Continue supportive care with antipyretics, bronchodilators, expectorants, and supplementation of Zinc, vitamins C and D. Continue incentive spirometry. Continue to trend acute phase reactants. CRP is mildly increased today to 12.7. LDH has improved, ferritin mildly increased. LFTs are normal. Transition to ICU has been considered due to high O2 requirements and will be pursued if patient is unable to maintain adequate oxygenation on high flow nasal cannula. Case has been discussed with proof clerk and supervising physician. She is stable on medical floor at this time. Check chest CTA given persistent hypoxia. Will consider pulmonology consult given ongoing oxygen demands. Clinically, she feels much better and is in no distress with no symptoms at all. (2) Acute respiratory failure: Qualifiers: Respiratory failure complication: hypoxia Qualified Code(s): J96.01 - Acute respiratory failure with hypoxia Code(s): J96.00 - Acute respiratory failure, unspecified whether with hypoxia or hypercapnia Status: Acute Assessment and Plan: Secondary to above. Continue supplemental O2 as above. Wean to goal. (3) Moderate persistent asthma: Qualifiers: Asthma complication type: unspecified Qualified Code(s): J45.40 - Moderate persistent asthma, uncomplicated Code(s): J45.40 - Moderate persistent asthma, uncomplicated Status: Acute Assessment and Plan: Not in acute exacerbation. Continue prior to admission Symbicort. Continue albuterol scheduled as above. (4) Obesity (BMI 30.0-34.9): Code(s): E66.9 - Obesity, unspecified Status: Chronic Assessment and Plan: Healthy lifestyle modifications are encouraged. (5) GERD (gastroesophageal reflux disease): Code(s): K21.9 - Gastro-esophageal reflux disease without esophagitis Status: Inactive Assessment and Plan: Continue prior to admission pepcid BID. Subjective Date/time seen: 04/23/20 11:30 Interval history: Mrs. Latif is a 59 y.o. female with PMH significant for asthma who is seen in follow-up for COVID-19 pneumonia with acute hypoxic respiratory failure. She reports that she feels better each day. She remains on 12 liters high-flow per nasal cannula but she denies shortness of breath at rest and with exertion. She is not having any chest pain or palpitations. She denies pleuritic pain. She is not having any nausea or vomiting. Bowels are regular. She notes a good sense of taste and smell. Initially, everything tasted very sugary which resolved. She is not having any abdominal pain. Review of Systems Review of Systems: All systems reviewed & are unremarkable except as noted in HPI and below Exam Na
--- NOTE | 2020-04-23 12:19 | WPDINFPN2 ---
Subjective Date/time seen: 04/23/20 12:19 Interval history: Consult request received. I discussed case with primary care team, and we mutually agreed to cancel consult. I provided curbside advice. Call if further Qs Objective Data Vital Signs Vital Signs: Vital Signs - 24 hr 04/22/20 15:59 04/22/20 16:00 04/22/20 17:18 Temperature 37.6 C Pulse Rate 88 Respiratory Rate 22 H Blood Pressure 109/64 Pulse Oximetry 94 94 93 04/22/20 18:30 04/22/20 18:42 04/22/20 19:42 Temperature 37.6 C 37.0 C Pulse Rate Respiratory Rate Blood Pressure Pulse Oximetry 96 04/22/20 20:00 04/22/20 21:17 04/23/20 00:00 Temperature 36.3 C L Pulse Rate 75 Respiratory Rate 16 Blood Pressure 100/56 L Pulse Oximetry 95 94 94 04/23/20 04:00 04/23/20 08:00 04/23/20 09:00 Temperature 36.8 C 36.8 C Pulse Rate 70 80 Respiratory Rate 20 18 Blood Pressure 100/57 L 113/66 Pulse Oximetry 93 100 91 04/23/20 09:26 Temperature Pulse Rate Respiratory Rate Blood Pressure Pulse Oximetry 90 Intake/Output Intake/Output: Intake & Output 04/20/20 04/21/20 04/22/20 04/23/20 23:59 23:59 23:59 23:59 Intake Total 1300 2180 1330 640 Output Total 2050 1250 600 Balance -136 205 0155 40 Meds/Results Medications: Active Medications Generic Name Dose Route Start Last Admin Trade Name Freq PRN Reason Stop Dose Admin Acetaminophen 650 mg 04/08/20 22:24 04/22/20 18:42 Acetaminophen 325 Mg Tablet PO 650 mg Q4H PRN Administration Mild Pain (1-3) or Fever Albuterol 2 puff 04/09/20 08:00 04/23/20 09:21 Albuterol Sulfate (*Sp) Aerosol 1 Puff INHALATION 2 puff QIDRT WILBERT Administration Ascorbic Acid 500 mg 04/09/20 09:00 04/23/20 08:47 Ascorbic Acid 500 Mg Tablet PO 500 mg DAILY WILBERT Administration Budesonide/Formoterol Fumarate 2 puff 04/09/20 08:00 04/23/20 09:22 Budesonide/Form 160-4.5 Mcg (*Sp) INHALATION 2 puff Q12HRT WILBERT Administration Docusate Sodium 100 mg 04/18/20 21:00 04/23/20 08:47 Docusate Sodium 100 Mg Capsule PO 100 mg Q12HR WILBERT Administration Enoxaparin Sodium 40 mg 04/09/20 09:00 04/23/20 08:47 Enoxaparin 40 Mg/0.4 Ml Syringe SUB-Q 40 mg Q12HR WILBERT Administration Famotidine 20 mg 04/09/20 09:00 04/23/20 08:47 Famotidine 20 Mg Tablet PO 20 mg BID WILBERT Administration Guaifenesin 600 mg 04/20/20 16:05 04/23/20 08:46 Guaifenesin 12 Hr 600 Mg Tabcr PO 600 mg Q12HR PRN Administration Cough, congestion Lidocaine 1 patch 04/11/20 09:00 04/23/20 08:47 Lidocaine 5% Patch TRANSDERM 1 patch DAILY WILBERT Administration Polyethylene Glycol 17 gm 04/18/20 11:05 04/23/20 08:46 Polyethylene Glycol 3350 17 Gm Powd.Pack PO 17 gm QAM WILBERT Administration Sodium Chloride 1 spray 04/13/20 14:56 04/14/20 09:01 Saline 0.65% Gilles Soln 44 Ml Btl NASAL 1 spray Q6HR PRN Administration Congestion Vitamin D 1,000 units 04/09/20 09:00 04/23/20 08:47 Cholecalciferol 1,000 Units Tablet PO 1,000 units DAILY WILBERT Administration Zinc Sulfate 220 mg 04/09/20 09:00 04/23/20 08:47 Zinc Sulfate 220 Mg Capsule PO 220 mg QAM WILBERT Administration Radiology Results: ITS Impressions Chest X-Ray 04/14/20 07:54 IMPRESSION: Moderate amount of diffuse ill-defined acute airspace disease. Clinical correlation. Labs Labs: Laboratory Results - last 24 hr 04/23/20 04/23/20 04/23/20 06:10 06:10 06:10 WBC 9.1 RBC 4.19 L Hgb 11.9 L Hct 37.6 MCV 89.7 MCH 28.4 MCHC 31.6 L RDW 12.6 Plt Count 289 MPV 9.8 Immature Gran % (Auto) 0.4 Neut % (Auto) 74.4 H Lymph % (Auto) 15.0 L [place] % (Auto) 7.7 Eos % (Auto) 2.4 Baso % (Auto) 0.1 L Lymph # (Auto) 1.37 [place] # (Auto) 0.7 H Eos # (Auto) 0.2 Baso # (Auto) 0.0 Abs Immat Gran (auto) 0.04 H Absolute Neuts (auto) 6.8 H Absolute Nucleated RBC 0.0 Nu
--- NOTE | 2020-04-23 17:47 | PCRCNOTE ---
Window of time for administration has passed. See next scheduled administration.
[2020-04-24] VITALS (9 sets, daily range): BP systolic 100–119; BP diastolic 50–72; PULSE 77–99; RESP 18–22; TEMP 36.6–37.5; O2SAT 90–95
--- NOTE | 2020-04-24 | ECHO_ITS ---
Patient Info Name: Renata Latif Age: 59 years : 1960 Gender: Female Ht: 59 in Wt: 165 lbs BSA: 1.80 m2 HR: 93 bpm BP: 118 / 69 mmHg Heart Rhythm: Sinus Rhythm Technical Quality: Good Exam Date: 04/24/2020 3:39 PM Exam Location: [facility] Pulmonary Exam Room: [facility]– [place][note 2] Patient Status: Inpatient Admit Date: 04/09/2020 Staff Ordering Physician: Laila Evans PA-C Cage Shift Manager: Maritza Polanco RDCS Attending Provider: Laila Evans PA-C Referring Physician: Nathan ZENDEJAS; Exam Type: CA echo doppler color flow Study Info Indications - covid 19 hypoxia Complete two-dimensional, color flow and Doppler transthoracic echocardiogram is performed. Summary 1. Complete two-dimensional, color flow and Doppler transthoracic echocardiogram is performed. 2. Left ventricular chamber dimension is normal. 3. Left ventricular systolic function is hyperdynamic, estimated at >70%. 4. Right ventricular chamber dimension is normal. 5. No significant valvular pathology. Left Ventricle Left ventricular chamber dimension is normal. Left ventricular systolic function is hyperdynamic, estimated at >70%. The left ventricular diastolic function is grade I diastolic dysfunction. Right Ventricle Right ventricular chamber dimension is normal. Left Atria Left atrial chamber dimension is normal. Right Atria Right atrial chamber dimension is normal. Aortic Valve The aortic valve is normal. Pulmonic Valve The pulmonic valve is normal. Mitral Valve The mitral valve has normal leaflets. Tricuspid Valve The tricuspid valve leaflets are normal. Pericardium/Pleural The pericardium appears normal. Aorta The aortic root size at the sinus of Valsalva is normal. Left Ventricular Outflow Tract Name Value Normal LVOT 2D LVOT Diameter 2.0 cm LVOT Doppler LVOT Peak Gradient 5 mmHg LVOT Mean Gradient 4 mmHg LVOT VTI 23 cm LVOT VTI/AV VTI Ratio 0.9 LVOT Stroke Volume 68 ml LVOT CO 17.2 l/min LVOT CI 9.6 l/min/m2 Pulmonic Valve Name Value Normal PV Doppler PV Peak Gradient 3 mmHg Mitral Valve Name Value Normal MV Doppler MV Decel [place] 326 cm/s2 MV PHT 60 ms MV Area (PHT) 3.7 cm2 4.0-5.0 MV Diastolic Function
[2020-04-24 06:50] LABS: Basophils Percent Auto 0.3 % (0.2-1.2); Eosinophils Absolute Auto 0.3 K/mm3 (0-0.3); Eosinophils Percent Auto 2.9 % (0-4.4); Hematocrit 37.7 % (37.0-47.0); Hemoglobin 11.7 g/dL (12.0-15.0); Immature Granulocyte Absolute 0.04 K/mm3 (0.00-0.031); Immature Granulocyte Percent A 0.4 % (0-0.5); Mean Corpuscular Hemoglobin 27.5 pg (26-34); Mean Corpuscular Volume 88.5 fl (80-100); Mean Platelet Volume 9.9 fl (7.4-10.4); Monocytes Absolute Auto 0.8 K/mm3 (0.1-0.6); Monocytes Percent Auto 8.1 % (2.6-8.5); Neutrophils Absolute Auto 6.7 K/mm3 (1.3-6.7); Neutrophils Percent Auto 71.3 % (45.5-73.1); Platelet Count Result 325 k/mm3 (150-375); Red Blood Count 4.26 M/mm3 (4.2-5.4); Red Cell Distribution Width 12.5 % (11.5-14.5); White Blood Count 9.4 K/mm3 (4.5-10.0)
[2020-04-24 07:18] LABS: Alanine Aminotransferase 19 U/L (4-35); Albumin Level 3.3 g/dL (3.5-5.1); Alkaline Phosphatase 79 U/L (38-126); Anion Gap 8 mmol/L (8-16); Aspartate Amino Transferase 17 U/L (14-36); Bilirubin,Total 0.9 mg/dL (0.2-1.3); Blood Urea Nitrogen 9 mg/dL (7-17); Calcium 8.8 mg/dL (8.4-10.2); Carbon Dioxide 26 mmol/L (22-30); Chloride 103 mmol/L (98-107); Creatine Kinase 26 U/L (30-135); Estimated Glomerular Filt Rate > 60; Glucose 105 mg/dL (65-105); Lactate Dehydrogenase 535 U/L (313-618); Magnesium 2.6 mg/dL (1.6-2.3); Potassium 3.8 mmol/L (3.4-5.0); Sodium 137 mmol/L (137-145)
[2020-04-24] MEDS: ENOXAPARIN 40 MG/0.4 ML SYRINGE SUB-Q ×2 (08:26→20:19)
[2020-04-24] MEDS: DOCUSATE SODIUM 100 MG CAPSULE PO ×2 (08:26→20:19)
[2020-04-24] MEDS: FAMOTIDINE 20 MG TABLET PO ×2 (08:26→17:12)
[2020-04-24] MEDS: LIDOCAINE 5% PATCH 1 PATCH TRANSDERM (08:26)
[2020-04-24] MEDS: ALBUTEROL SULFATE (*SP) AEROSOL 1 PUFF 2 PUFF INHALATION ×4 (08:40→21:35)
[2020-04-24 08:47] LABS: CRP 14.7 mg/dL (<1.0)
--- NOTE | 2020-04-24 14:01 | PM.IMPN ---
Progress Note: A&P Assessment and Plan (1) Pneumonia due to 2019 novel coronavirus: Code(s): U07.1 - COVID-19; J12.89 - Other viral pneumonia Status: Acute Assessment and Plan: Patient presented with worsening shortness of breath and COVID positive contacts. She was symptomatic approximately 7 days prior to presentation. Chest x-ray showed bilateral hazy airspace opacities and diffuse lung disease. Repeat CXR 04/14 showed moderate amount of diffuse ill-defined airspace disease with slight progression from prior CXR. Oxygen requirements increased to 15 liters high flow per nasal cannula with non-rebreather to maintain stable oxygen saturations on 04/13. She remained on 15 liters per nasal cannula with non-rebreather through 04/20. Weaning has been tried intermittently since 04/20. Non-rebreather was discontinued 04/22. She is tolerating this well. She remains on 12 liters high flow per nasal cannula today and was unable to be weaned again today. Continue supplemental oxygen as needed with goal oxygen saturation of 90% or above. Wean as tolerated to goal. Monitor closely with continuous pulse ox. She completed 10 days of dexamethasone on 04/18. She completed 5 days of remdesivir on 04/13. Continue supportive care with antipyretics, bronchodilators, expectorants, and supplementation of Zinc, vitamins C and D. Continue incentive spirometry. Continue to trend acute phase reactants. Chest CTA showed no evidence of pulmonary embolism, diffuse lung disease, mild emphysema, and mild mediastinal and bilateral hilar lymphadenopathy. I have discussed her care with pulmonology who will see her in consultation given her persistent hypoxia with high oxygen requirements. (2) Acute respiratory failure: Qualifiers: Respiratory failure complication: hypoxia Qualified Code(s): J96.01 - Acute respiratory failure with hypoxia Code(s): J96.00 - Acute respiratory failure, unspecified whether with hypoxia or hypercapnia Status: Acute Assessment and Plan: Secondary to above. Continue supplemental O2 as above. Wean to goal. (3) Moderate persistent asthma: Qualifiers: Asthma complication type: unspecified Qualified Code(s): J45.40 - Moderate persistent asthma, uncomplicated Code(s): J45.40 - Moderate persistent asthma, uncomplicated Status: Acute Assessment and Plan: Not in acute exacerbation. Continue prior to admission Symbicort. Continue albuterol scheduled as above. (4) Obesity (BMI 30.0-34.9): Code(s): E66.9 - Obesity, unspecified Status: Chronic Assessment and Plan: Healthy lifestyle modifications are encouraged. (5) GERD (gastroesophageal reflux disease): Code(s): K21.9 - Gastro-esophageal reflux disease without esophagitis Status: Inactive Assessment and Plan: Continue prior to admission pepcid BID. (6) Liver cyst: Code(s): K76.89 - Other specified diseases of liver Status: Acute Assessment and Plan: 7.3cm cyst visualized on chest CTA. Recommend outpatient follow-up. Subjective Date/time seen: 04/24/20 14:01 Interval history: Mrs. Latif is a 59 y.o. female with PMH significant for asthma who is seen in follow-up for COVID-19 pneumonia with acute hypoxic respiratory failure. She has no complaints today and she is in good spirits. She reports no dyspnea at rest or with exertion. She remains on 12 liters per nasal cannula and is unable to be weaned on trials today. She reports a mild dry cough intermittently. Appetite is good and bowels are regular. She denies dizziness and lightheadedness. She is not having any calf pain or tenderness. She is voiding without any difficulty. Review of Systems Review of Systems: All systems reviewed & are unremarkable except as noted in HPI and below Exam Narrative: Exam Narrative: General: Well-developed and well-nourished 59 y.o. female sitting at t
[2020-04-24] MEDS: ZINC SULFATE 220 MG CAPSULE PO (14:36)
[2020-04-24] MEDS: ASCORBIC ACID 500 MG TABLET PO (14:36)
[2020-04-24] MEDS: polyethylene glycoL 3350 17 GM POWD.PACK PO (14:36)
[2020-04-24] MEDS: CHOLECALCIFEROL 1,000 UNITS TABLET 1000 UNITS PO (14:36)
[2020-04-25] VITALS (8 sets, daily range): BP systolic 103–114; BP diastolic 57–76; PULSE 82–95; RESP 20; TEMP 36.7–37.5; O2SAT 90–93
[2020-04-25 06:33] LABS: Hematocrit 36.6 % (37.0-47.0); Hemoglobin 11.5 g/dL (12.0-15.0); Mean Corpuscular HGB Conc 31.4 g/dl (32-36); Mean Corpuscular Hemoglobin 27.6 pg (26-34); Mean Platelet Volume 10.2 fl (7.4-10.4); Platelet Count Result 278 k/mm3 (150-375); Red Blood Count 4.16 M/mm3 (4.2-5.4); Red Cell Distribution Width 12.6 % (11.5-14.5); White Blood Count 8.7 K/mm3 (4.5-10.0)
[2020-04-25 06:45] LABS: Alanine Aminotransferase 20 U/L (4-35); Albumin Level 3.4 g/dL (3.5-5.1); Alkaline Phosphatase 78 U/L (38-126); Anion Gap 8 mmol/L (8-16); Aspartate Amino Transferase 20 U/L (14-36); Blood Urea Nitrogen 9 mg/dL (7-17); CRP 8.4 mg/dL (<1.0); Calcium 8.9 mg/dL (8.4-10.2); Carbon Dioxide 29 mmol/L (22-30); Chloride 100 mmol/L (98-107); Estimated Glomerular Filt Rate > 60; Glucose 121 mg/dL (65-105); Magnesium 2.4 mg/dL (1.6-2.3); Potassium 3.7 mmol/L (3.4-5.0); Sodium 137 mmol/L (137-145)
[2020-04-25] MEDS: ALBUTEROL SULFATE (*SP) AEROSOL 1 PUFF 2 PUFF INHALATION ×3 (07:52→15:44)
[2020-04-25] MEDS: ZINC SULFATE 220 MG CAPSULE PO (08:55)
[2020-04-25] MEDS: polyethylene glycoL 3350 17 GM POWD.PACK PO (08:55)
[2020-04-25] MEDS: ASCORBIC ACID 500 MG TABLET PO (08:55)
[2020-04-25] MEDS: ENOXAPARIN 40 MG/0.4 ML SYRINGE SUB-Q ×2 (08:55→21:10)
[2020-04-25] MEDS: DOCUSATE SODIUM 100 MG CAPSULE PO ×2 (08:55→21:10)
[2020-04-25] MEDS: LIDOCAINE 5% PATCH 1 PATCH TRANSDERM (08:55)
[2020-04-25] MEDS: CHOLECALCIFEROL 1,000 UNITS TABLET 1000 UNITS PO (08:55)
[2020-04-25] MEDS: FAMOTIDINE 20 MG TABLET PO ×2 (08:55→18:51)
--- NOTE | 2020-04-25 12:23 | PM.IMPN ---
Progress Note: A&P Assessment and Plan (1) Pneumonia due to 2019 novel coronavirus: Code(s): U07.1 - COVID-19; J12.89 - Other viral pneumonia Status: Acute Assessment and Plan: Patient presented with worsening shortness of breath and COVID positive contacts. She was symptomatic approximately 7 days prior to presentation. Chest x-ray showed bilateral hazy airspace opacities and diffuse lung disease. Repeat CXR 04/14 showed moderate amount of diffuse ill-defined airspace disease with slight progression from prior CXR. Oxygen requirements increased to 15 liters high flow per nasal cannula with non-rebreather to maintain stable oxygen saturations on 04/13. She remained on 15 liters per nasal cannula with non-rebreather through 04/20. Weaning has been tried intermittently since 04/20. Non-rebreather was discontinued 04/22. She was increased to 13 liters per nasal cannula overnight and weaned back to 12 liters per nasal cannula today. Continue supplemental oxygen as needed with goal oxygen saturation of 90% or above. Wean as tolerated to goal. Monitor closely with continuous pulse ox. She completed 10 days of dexamethasone on 04/18. She completed 5 days of remdesivir on 04/13. Continue supportive care with antipyretics, bronchodilators, expectorants, and supplementation of Zinc, vitamins C and D. Continue incentive spirometry. Continue to trend acute phase reactants. Chest CTA showed no evidence of pulmonary embolism, diffuse lung disease, mild emphysema, and mild mediastinal and bilateral hilar lymphadenopathy. Echocardiogram was performed and is unremarkable. I have discussed her care with pulmonology who will see her in consultation given her persistent hypoxia with high oxygen requirements. Await further pulmonology recommendations Will give a dose of lasix to see if this offers any improvement. CRP and ferritin have improved. (2) Acute respiratory failure: Qualifiers: Respiratory failure complication: hypoxia Qualified Code(s): J96.01 - Acute respiratory failure with hypoxia Code(s): J96.00 - Acute respiratory failure, unspecified whether with hypoxia or hypercapnia Status: Acute Assessment and Plan: Secondary to above. Continue supplemental O2 as above. Wean to goal. (3) Moderate persistent asthma: Qualifiers: Asthma complication type: unspecified Qualified Code(s): J45.40 - Moderate persistent asthma, uncomplicated Code(s): J45.40 - Moderate persistent asthma, uncomplicated Status: Acute Assessment and Plan: Not in acute exacerbation. Continue prior to admission Symbicort. Continue albuterol scheduled as above. (4) Obesity (BMI 30.0-34.9): Code(s): E66.9 - Obesity, unspecified Status: Chronic Assessment and Plan: Healthy lifestyle modifications are encouraged. (5) GERD (gastroesophageal reflux disease): Code(s): K21.9 - Gastro-esophageal reflux disease without esophagitis Status: Inactive Assessment and Plan: Continue prior to admission pepcid BID. (6) Liver cyst: Code(s): K76.89 - Other specified diseases of liver Status: Acute Assessment and Plan: 7.3cm cyst visualized on chest CTA. Recommend outpatient follow-up. Subjective Date/time seen: 04/25/20 12:23 Interval history: Mrs. Latif is a 59 y.o. female with PMH significant for asthma who is seen in follow-up for COVID-19 pneumonia with acute hypoxic respiratory failure. Mrs. Latif has no complaints today. She has been up walking in the room throughout the day and does not endorse any dyspnea. She is not having chest pain or palpitations. Appetite is good and bowels are regular. She is voiding without difficulty. She has no leg pain or swelling. She was unable to be weaned from 12 liters today. I tried to call her daughter for updates and left a voicemail. Review of Systems Review of Systems: All systems revi
[2020-04-25] MEDS: FUROSEMIDE 20 MG TABLET PO (21:10)
[2020-04-26] VITALS (9 sets, daily range): BP systolic 95–133; BP diastolic 47–79; PULSE 86–109; RESP 20; TEMP 36.9–37.6; O2SAT 90–95
[2020-04-26 07:25] LABS: Hematocrit 33.9 % (37.0-47.0); Hemoglobin 10.8 g/dL (12.0-15.0); Mean Corpuscular HGB Conc 31.9 g/dl (32-36); Mean Corpuscular Volume 87.8 fl (80-100); Mean Platelet Volume 9.8 fl (7.4-10.4); Platelet Count Result 285 k/mm3 (150-375); Red Blood Count 3.86 M/mm3 (4.2-5.4); Red Cell Distribution Width 12.5 % (11.5-14.5); White Blood Count 9.3 K/mm3 (4.5-10.0)
[2020-04-26 07:57] LABS: Alanine Aminotransferase 21 U/L (4-35); Albumin Level 3.2 g/dL (3.5-5.1); Alkaline Phosphatase 80 U/L (38-126); Anion Gap 8 mmol/L (8-16); Aspartate Amino Transferase 22 U/L (14-36); Blood Urea Nitrogen 7 mg/dL (7-17); Calcium 8.7 mg/dL (8.4-10.2); Carbon Dioxide 30 mmol/L (22-30); Chloride 99 mmol/L (98-107); Estimated Glomerular Filt Rate > 60; Glucose 114 mg/dL (65-105); Potassium 3.6 mmol/L (3.4-5.0); Sodium 137 mmol/L (137-145)
[2020-04-26] MEDS: ALBUTEROL SULFATE (*SP) AEROSOL 1 PUFF 2 PUFF INHALATION ×3 (08:39→20:12)
[2020-04-26] MEDS: FAMOTIDINE 20 MG TABLET PO ×2 (09:16→17:44)
[2020-04-26] MEDS: LIDOCAINE 5% PATCH 1 PATCH TRANSDERM (09:16)
[2020-04-26] MEDS: CHOLECALCIFEROL 1,000 UNITS TABLET 1000 UNITS PO (09:16)
[2020-04-26] MEDS: ENOXAPARIN 40 MG/0.4 ML SYRINGE SUB-Q ×2 (09:16→21:14)
[2020-04-26] MEDS: ASCORBIC ACID 500 MG TABLET PO (09:16)
[2020-04-26] MEDS: polyethylene glycoL 3350 17 GM POWD.PACK PO (09:16)
[2020-04-26] MEDS: ZINC SULFATE 220 MG CAPSULE PO (09:16)
[2020-04-26] MEDS: DOCUSATE SODIUM 100 MG CAPSULE PO ×2 (09:16→21:14)
--- NOTE | 2020-04-26 11:04 | PM.IMPN ---
Progress Note: A&P Assessment and Plan (1) Pneumonia due to 2019 novel coronavirus: Code(s): U07.1 - COVID-19; J12.89 - Other viral pneumonia Status: Acute Assessment and Plan: Patient presented with worsening shortness of breath and COVID positive contacts. She was symptomatic approximately 7 days prior to presentation. Chest x-ray showed bilateral hazy airspace opacities and diffuse lung disease. Repeat CXR 04/14 showed moderate amount of diffuse ill-defined airspace disease with slight progression from prior CXR. Oxygen requirements increased to 15 liters high flow per nasal cannula with non-rebreather to maintain stable oxygen saturations on 04/13. She remained on 15 liters per nasal cannula with non-rebreather through 04/20. Weaning has been tried intermittently since 04/20. Non-rebreather was discontinued 04/22. She is on 12 liters per nasal cannula and she has been unable to wean today. Continue supplemental oxygen as needed with goal oxygen saturation of 90% or above. Wean as tolerated to goal. Monitor closely with continuous pulse ox. She completed 10 days of dexamethasone on 04/18. She completed 5 days of remdesivir on 04/13. Continue supportive care with prone positioning, antipyretics, bronchodilators, expectorants, and supplementation of Zinc, vitamins C and D. Continue incentive spirometry. Continue to trend acute phase reactants. Chest CTA showed no evidence of pulmonary embolism, diffuse lung disease, mild emphysema, and mild mediastinal and bilateral hilar lymphadenopathy. Echocardiogram was performed and is unremarkable. I have discussed her care with pulmonology who will see her in consultation given her persistent hypoxia with high oxygen requirements. Await further pulmonology recommendations. Will continue lasix as she did have good urine output. Monitor Cr closely. Ferritin and CRP have improved. (2) Acute respiratory failure: Qualifiers: Respiratory failure complication: hypoxia Qualified Code(s): J96.01 - Acute respiratory failure with hypoxia Code(s): J96.00 - Acute respiratory failure, unspecified whether with hypoxia or hypercapnia Status: Acute Assessment and Plan: Secondary to above. Continue supplemental O2 as above. Wean to goal. (3) Moderate persistent asthma: Qualifiers: Asthma complication type: unspecified Qualified Code(s): J45.40 - Moderate persistent asthma, uncomplicated Code(s): J45.40 - Moderate persistent asthma, uncomplicated Status: Acute Assessment and Plan: Not in acute exacerbation. Continue prior to admission Symbicort. Continue albuterol scheduled as above. (4) Obesity (BMI 30.0-34.9): Code(s): E66.9 - Obesity, unspecified Status: Chronic Assessment and Plan: Healthy lifestyle modifications are encouraged. (5) GERD (gastroesophageal reflux disease): Code(s): K21.9 - Gastro-esophageal reflux disease without esophagitis Status: Inactive Assessment and Plan: Continue prior to admission pepcid BID. (6) Liver cyst: Code(s): K76.89 - Other specified diseases of liver Status: Acute Assessment and Plan: 7.3cm cyst visualized on chest CTA. Recommend outpatient follow-up. Subjective Date/time seen: 04/26/20 11:04 Interval history: Mrs. Latif is a 59 y.o. female with PMH significant for asthma who is seen in follow-up for COVID-19 pneumonia with acute hypoxic respiratory failure. She tried prone positioning and feels like that helped. She denies dyspnea and chest pain. She is not having any fever or chills. She does not have any nausea or vomiting. Her appetite is good. She does not have any dizziness or lightheadedness. She does not have any leg swelling or pain. I was able to talk to Renata's daughter at her request to provide updates. Review of Systems Review of Systems: All systems reviewed & are unremarkable except as noted
[2020-04-26] MEDS: FUROSEMIDE 20 MG TABLET PO (15:20)
[2020-04-27] VITALS (10 sets, daily range): BP systolic 112–129; BP diastolic 58–77; PULSE 95–105; RESP 20; TEMP 36.8–37.2; O2SAT 84–98
[2020-04-27 08:09] LABS: Hematocrit 34.1 % (37.0-47.0); Hemoglobin 10.9 g/dL (12.0-15.0); Mean Corpuscular Hemoglobin 28.1 pg (26-34); Mean Corpuscular Volume 87.9 fl (80-100); Mean Platelet Volume 9.8 fl (7.4-10.4); Platelet Count Result 270 k/mm3 (150-375); Red Blood Count 3.88 M/mm3 (4.2-5.4); Red Cell Distribution Width 12.5 % (11.5-14.5); White Blood Count 9.9 K/mm3 (4.5-10.0)
[2020-04-27] MEDS: FAMOTIDINE 20 MG TABLET PO ×2 (08:11→17:07)
[2020-04-27] MEDS: ZINC SULFATE 220 MG CAPSULE PO (08:11)
[2020-04-27] MEDS: LIDOCAINE 5% PATCH 1 PATCH TRANSDERM (08:11)
[2020-04-27] MEDS: CHOLECALCIFEROL 1,000 UNITS TABLET 1000 UNITS PO (08:11)
[2020-04-27] MEDS: DOCUSATE SODIUM 100 MG CAPSULE PO ×2 (08:11→21:09)
[2020-04-27] MEDS: guaiFENesin 12 HR 600 MG TABCR PO (08:11)
[2020-04-27] MEDS: ASCORBIC ACID 500 MG TABLET PO (08:11)
[2020-04-27] MEDS: polyethylene glycoL 3350 17 GM POWD.PACK PO (08:12)
[2020-04-27] MEDS: ENOXAPARIN 40 MG/0.4 ML SYRINGE SUB-Q ×2 (08:12→21:09)
[2020-04-27 08:38] LABS: Iron 18 ug/dL (37-170)
[2020-04-27 08:42] LABS: Alanine Aminotransferase 22 U/L (4-35); Albumin Level 3.1 g/dL (3.5-5.1); Alkaline Phosphatase 87 U/L (38-126); Anion Gap 7 mmol/L (8-16); Aspartate Amino Transferase 25 U/L (14-36); Blood Urea Nitrogen 6 mg/dL (7-17); CRP 16.5 mg/dL (<1.0); Calcium 8.6 mg/dL (8.4-10.2); Carbon Dioxide 32 mmol/L (22-30); Chloride 100 mmol/L (98-107); Estimated Glomerular Filt Rate > 60; Glucose 99 mg/dL (65-105); Potassium 3.6 mmol/L (3.4-5.0); Sodium 139 mmol/L (137-145)
[2020-04-27 08:47] LABS: Percent Iron Saturation 9 % (20-50)
[2020-04-27 09:27] LABS: Folic Acid 7.8 ng/mL (2.76->20)
[2020-04-27] MEDS: ALBUTEROL SULFATE (*SP) AEROSOL 1 PUFF 2 PUFF INHALATION ×4 (09:41→19:43)
--- NOTE | 2020-04-27 11:11 | PM.IMPN ---
Progress Note: A&P Assessment and Plan (1) Pneumonia due to 2019 novel coronavirus: Code(s): U07.1 - COVID-19; J12.89 - Other viral pneumonia Status: Acute Assessment and Plan: Patient presented with worsening shortness of breath and COVID positive contacts. She was symptomatic approximately 7 days prior to presentation. Chest x-ray showed bilateral hazy airspace opacities and diffuse lung disease. Repeat CXR 04/14 showed moderate amount of diffuse ill-defined airspace disease with slight progression from prior CXR. Oxygen requirements increased to 15 liters high flow per nasal cannula with non-rebreather to maintain stable oxygen saturations on 04/13. She remained on 15 liters per nasal cannula with non-rebreather through 04/20. Weaning has been tried intermittently since 04/20. Non-rebreather was discontinued 04/22. Continue supplemental oxygen as needed with goal oxygen saturation of 90% or above. Wean as tolerated to goal. Monitor closely with continuous pulse ox. She completed 10 days of dexamethasone on 04/18. She completed 5 days of remdesivir on 04/13. Continue supportive care with prone positioning, antipyretics, bronchodilators, expectorants, and supplementation of Zinc, vitamins C and D. Continue incentive spirometry. Continue to trend acute phase reactants. Chest CTA showed no evidence of pulmonary embolism, diffuse lung disease, mild emphysema, and mild mediastinal and bilateral hilar lymphadenopathy. Echocardiogram was performed and is unremarkable. I have discussed her care with pulmonology who will see her in consultation given her persistent hypoxia with high oxygen requirements. Await further pulmonology recommendations. She received lasix with good urine output but appears euvolemic. Monitor Cr closely. Ferritin has increased minimally and CRP is also elevated. Oxygen requirements have increased to 15 liters and she is on non-rebreather with tachypnea. She is not in acute distress and feels fine. Will resume continuous pulse oximetry and telemetry monitoring for closer monitoring given increased oxygen requirements. Check CXR. (2) Acute respiratory failure: Qualifiers: Respiratory failure complication: hypoxia Qualified Code(s): J96.01 - Acute respiratory failure with hypoxia Code(s): J96.00 - Acute respiratory failure, unspecified whether with hypoxia or hypercapnia Status: Acute Assessment and Plan: Secondary to above. Continue supplemental O2 as above. Wean to goal. (3) Moderate persistent asthma: Qualifiers: Asthma complication type: unspecified Qualified Code(s): J45.40 - Moderate persistent asthma, uncomplicated Code(s): J45.40 - Moderate persistent asthma, uncomplicated Status: Acute Assessment and Plan: Not in acute exacerbation. Continue prior to admission Symbicort. Continue albuterol scheduled as above. (4) Obesity (BMI 30.0-34.9): Code(s): E66.9 - Obesity, unspecified Status: Chronic Assessment and Plan: Healthy lifestyle modifications are encouraged. (5) GERD (gastroesophageal reflux disease): Code(s): K21.9 - Gastro-esophageal reflux disease without esophagitis Status: Inactive Assessment and Plan: Continue prior to admission pepcid BID. (6) Liver cyst: Code(s): K76.89 - Other specified diseases of liver Status: Acute Assessment and Plan: 7.3cm cyst visualized on chest CTA. Recommend outpatient follow-up. Subjective Date/time seen: 04/27/20 11:11 Interval history: Mrs. Latif is a 59 y.o. female with PMH significant for asthma who is seen in follow-up for COVID-19 pneumonia with acute hypoxic respiratory failure. Oxygen requirements increased to 15 liters and she is on non-rebreather at 98%. She notes intermittent cough since yesterday which is productive of clear sputum. She is not having any chest pain, pleuritic pain, or shortness of breath.
--- NOTE | 2020-04-27 21:12 | PM.CNPUL ---
Assessment and Plan Assessment and plan (1) Acute respiratory failure: Qualifiers: Respiratory failure complication: hypoxia Qualified Code(s): J96.01 - Acute respiratory failure with hypoxia Code(s): J96.00 - Acute respiratory failure, unspecified whether with hypoxia or hypercapnia Status: Acute Assessment and Plan: Persistent hypoxemia due to COVID pneumonia, and has been treated with all the usual available meds, Remdesivir x 5 days, dexamethasone x 10 days. Will increased Vit D and Vit C dose, plan to give iron replacement with her iron deficiency anemia, and see about options for O2 at home. She may be a candidate for IV iron, will discuss with Laila Willams PA-C as there is a minor risk of allergic reaction, and she has asthma. There is no data to support re-starting steroids, however this may help, so will start a steroid dose in the am. She is a long hauler, taking a long time to recover. (2) Pneumonia due to 2019 novel coronavirus: Code(s): U07.1 - COVID-19; J12.89 - Other viral pneumonia Status: Acute Assessment and Plan: she has persistent infiltrates and hypoxemia due to the novel coronavirus (3) Hypoxia: Code(s): R09.02 - Hypoxemia Status: Acute Assessment and Plan: see above (4) Moderate persistent asthma: Qualifiers: Asthma complication type: unspecified Qualified Code(s): J45.40 - Moderate persistent asthma, uncomplicated Code(s): J45.40 - Moderate persistent asthma, uncomplicated Status: Acute Assessment and Plan: stable prior to admission agree with Symbicort and PRN bronchodilators History of Present Illness History of Present Illness Consult date: 04/28/20 Requesting physician: Laila Evans PA-C Reason for consult: hypoxemia Chief complaint: suspected COVID-19 Narrative: NEW: Renata Latif is a 59 yo woman with moderate asthma under good control at baseline. She was admitted Nov 3 with COVID pneumonia and hypoxemic respiratory failure. She was treated with remdesivir 5 days and dexamethasone. Now 19 days after admission she feels better however cannot be weaned form 15 L non-rebreather. When the flow of O2 has been decreased, she rapidly desaturates into the 75% range. She is on too much to go home, although she would not be against going home. She has support at home, her grandson lives with her and she has daughters that come by regularly. Review of Systems Review of Systems: All systems reviewed & are unremarkable except as noted in HPI and below PMFSH Past Medical History Medical History GERD (gastroesophageal reflux disease) Moderate persistent asthma Obesity (BMI 30.0-34.9) Family History Family History Sibling Diabetes mellitus Dialysis patient Father Congestive heart failure Sibling Myocardial infarction Social History Social History Years smoked: 10 Smoking status: Heavy tobacco smoker Tobacco type: cigarettes Alcohol intake: former Drinks per week: 2 Substance use: former Substance use type: marijuana Last use: 1 month ago Occupation/Education: retired Additional occupation/education comments: previously worked in detention as aide Gender identity (if verbalized by the patient): Female Spiritual care concerns: No Meds Home Medications and Allergies Home Medications Medication Instructions Recorded Confirmed Type albuterol sulfate 2 puff INHALATION Q4-6H PRN 04/08/20 04/08/20 History budesonide-f
[2020-04-28] VITALS (9 sets, daily range): BP systolic 100–120; BP diastolic 61–77; PULSE 79–100; RESP 20–24; TEMP 36.6–37; O2SAT 89–96
[2020-04-28] MEDS: DOCUSATE SODIUM 100 MG CAPSULE PO ×2 (08:33→21:01)
[2020-04-28] MEDS: guaiFENesin 12 HR 600 MG TABCR PO (08:33)
[2020-04-28] MEDS: CHOLECALCIFEROL 1,000 UNITS TABLET 5000 UNITS PO (08:34)
[2020-04-28] MEDS: ZINC SULFATE 220 MG CAPSULE PO (08:34)
[2020-04-28] MEDS: FAMOTIDINE 20 MG TABLET PO ×2 (08:35→16:49)
[2020-04-28] MEDS: LIDOCAINE 5% PATCH 1 PATCH TRANSDERM (08:35)
[2020-04-28] MEDS: ASCORBIC ACID 500 MG TABLET PO ×2 (08:35→16:49)
[2020-04-28] MEDS: ENOXAPARIN 40 MG/0.4 ML SYRINGE SUB-Q ×2 (08:36→21:01)
[2020-04-28] MEDS: predniSONE 20 MG TABLET 40 MG PO (08:37)
[2020-04-28] MEDS: ALBUTEROL SULFATE (*SP) AEROSOL 1 PUFF 2 PUFF INHALATION (08:43)
[2020-04-28 08:54] LABS: Basophils Percent Auto 0.3 % (0.2-1.2); Eosinophils Absolute Auto 0.5 K/mm3 (0-0.3); Eosinophils Percent Auto 4.2 % (0-4.4); Immature Granulocyte Absolute 0.07 K/mm3 (0.00-0.031); Immature Granulocyte Percent A 0.6 % (0-0.5); Lymphocytes Absolute Auto 1.54 K/mm3 (0.9-3.2); Lymphocytes Percent Auto 13.1 % (18.3-44.2); Mean Corpuscular HGB Conc 31.4 g/dl (32-36); Mean Corpuscular Hemoglobin 28.1 pg (26-34); Mean Corpuscular Volume 89.3 fl (80-100); Mean Platelet Volume 9.6 fl (7.4-10.4); Monocytes Absolute Auto 0.7 K/mm3 (0.1-0.6); Monocytes Percent Auto 6.2 % (2.6-8.5); Neutrophils Absolute Auto 8.9 K/mm3 (1.3-6.7); Neutrophils Percent Auto 75.6 % (45.5-73.1); Platelet Count Result 273 k/mm3 (150-375); Red Blood Count 3.92 M/mm3 (4.2-5.4); Red Cell Distribution Width 12.6 % (11.5-14.5); White Blood Count 11.8 K/mm3 (4.5-10.0)
[2020-04-28 09:10] LABS: Alanine Aminotransferase 22 U/L (4-35); Albumin Level 3.3 g/dL (3.5-5.1); Alkaline Phosphatase 100 U/L (38-126); Anion Gap 9 mmol/L (8-16); Aspartate Amino Transferase 25 U/L (14-36); Blood Urea Nitrogen 8 mg/dL (7-17); Calcium 8.7 mg/dL (8.4-10.2); Carbon Dioxide 27 mmol/L (22-30); Chloride 98 mmol/L (98-107); Creatine Kinase 45 U/L (30-135); Estimated Glomerular Filt Rate > 60; Glucose 93 mg/dL (65-105); Lactate Dehydrogenase 752 U/L (313-618); Magnesium 2.4 mg/dL (1.6-2.3); Sodium 134 mmol/L (137-145)
--- NOTE | 2020-04-28 12:19 | PM.IMPN ---
Progress Note: A&P Assessment and Plan (1) Pneumonia due to 2019 novel coronavirus: Code(s): U07.1 - COVID-19; J12.89 - Other viral pneumonia Status: Acute Assessment and Plan: Patient presented with worsening shortness of breath and COVID positive contacts. She was symptomatic approximately 7 days prior to presentation. Chest x-ray showed bilateral hazy airspace opacities and diffuse lung disease. Repeat CXR 04/14 showed moderate amount of diffuse ill-defined airspace disease with slight progression from prior CXR. Oxygen requirements increased to 15 liters high flow per nasal cannula with non-rebreather to maintain stable oxygen saturations on 04/13. She remained on 15 liters per nasal cannula with non-rebreather through 04/20. Weaning has been tried intermittently since 04/20. Non-rebreather was discontinued 04/22. Continue supplemental oxygen as needed with goal oxygen saturation of 90% or above. Wean as tolerated to goal. Monitor closely with continuous pulse ox. She completed 10 days of dexamethasone on 04/18. She completed 5 days of remdesivir on 04/13. Continue supportive care with prone positioning, antipyretics, bronchodilators, expectorants, and supplementation of Zinc, vitamins C and D. Continue incentive spirometry. Continue to trend acute phase reactants. Chest CTA showed no evidence of pulmonary embolism, diffuse lung disease, mild emphysema, and mild mediastinal and bilateral hilar lymphadenopathy. Echocardiogram was performed and is unremarkable. I have discussed her care with pulmonology who recommends prednisone which was initiated today (04/28). Ferritin and CRP have increased. CXR demonstrated mild progression in her extensive consolidation. (2) Acute respiratory failure: Qualifiers: Respiratory failure complication: hypoxia Qualified Code(s): J96.01 - Acute respiratory failure with hypoxia Code(s): J96.00 - Acute respiratory failure, unspecified whether with hypoxia or hypercapnia Status: Acute Assessment and Plan: Secondary to above. Continue supplemental O2 as above. Wean to goal. (3) Moderate persistent asthma: Qualifiers: Asthma complication type: unspecified Qualified Code(s): J45.40 - Moderate persistent asthma, uncomplicated Code(s): J45.40 - Moderate persistent asthma, uncomplicated Status: Acute Assessment and Plan: Not in acute exacerbation. Continue prior to admission Symbicort. Continue albuterol scheduled as above. (4) Obesity (BMI 30.0-34.9): Code(s): E66.9 - Obesity, unspecified Status: Chronic Assessment and Plan: Healthy lifestyle modifications are encouraged. (5) GERD (gastroesophageal reflux disease): Code(s): K21.9 - Gastro-esophageal reflux disease without esophagitis Status: Inactive Assessment and Plan: Continue prior to admission pepcid BID. (6) Liver cyst: Code(s): K76.89 - Other specified diseases of liver Status: Acute Assessment and Plan: 7.3cm cyst visualized on chest CTA. Recommend outpatient follow-up. (7) Anemia: Code(s): D64.9 - Anemia, unspecified Status: Acute Assessment and Plan: Hb is 11 and Hct 35. Iron studies are consistent with anemia of chronic disease. Vitamin B12 and folate are sufficient. This is likely due to acute illness. Continue to monitor with CBC daily. Subjective Date/time seen: 04/28/20 12:19 Interval history: Mrs. Latif is a 59 y.o. female with PMH significant for asthma who is seen in follow-up for COVID-19 pneumonia with acute hypoxic respiratory failure. She desaturated overnight and had to be placed on non-rebreather. She is feeling more short of breath with any activity. She is not having any pleuritic pain, chest pain, or palpitations. She notes dry cough intermittently but is not able to expectorate any sputum. She is tired today. Her appetite is okay. She is not
--- NOTE | 2020-04-28 14:10 | PM.PNPUL ---
Progress Note: A&P Assessment and Plan (1) Moderate persistent asthma: Qualifiers: Asthma complication type: unspecified Qualified Code(s): J45.40 - Moderate persistent asthma, uncomplicated Code(s): J45.40 - Moderate persistent asthma, uncomplicated Status: Acute Assessment and Plan: Will increase Symbicort to 160/4.5 mcg 2 puffs Q6h via spacer device (2) Suspected COVID-19 virus infection: Code(s): Z20.828 - Contact with and (suspected) exposure to other viral communicable diseases Status: Acute Assessment and Plan: Received 10 days of Dexamethasone and 5 days of Remdesivir Currently on Prednisone 40 mg PO daily (3) Acute respiratory failure: Qualifiers: Respiratory failure complication: hypoxia Qualified Code(s): J96.01 - Acute respiratory failure with hypoxia Code(s): J96.00 - Acute respiratory failure, unspecified whether with hypoxia or hypercapnia Status: Acute (4) Hypoxia: Code(s): R09.02 - Hypoxemia Status: Acute Assessment and Plan: - will get CT chest PE protocol to as she is at high risk especially given - continue high flow max dose with non rebreather face mask - if she starts to get tired or fatigue I would recommend starting BIPAP 18/8 with backup rate of 18, 100% FiO2 Subjective Date/time seen: 04/28/20 14:10 Interval history: 59 y/o with severe hypoxemic respiratory failure, ARDS, COVID-19 and Asthma still requiring max high flow oxygen + non rebreather. She is not feeling better or worse but she's very short of breath with minimal exertion. Her appetite is decreased today. She's currently on prednisone 40 mg which is equivalent to about Dexamethsone 6 mg daily. Review of Systems Review of Systems: All systems reviewed & are unremarkable except as noted in HPI and below Exam Const: General: comfortable and no acute distress HENMT: Mouth: Yes moist mucous membranes Eyes: General: appearance normal, both eyes and all related structures Neck: Neck: no JVD Resp: Effort & Inspection: normal respiratory effort (mild increase in respiratory effort) Auscultation: rales (few crackles in bases) bilateral Cardio: Rate: regular rate Rhythm: regular rhythm Heart sounds: no murmurs and no rubs GI: Auscultation: normal bowel sounds Skin: General skin exam: normal color and no rashes or lesions noted Neuro: General: No gait normal (not tested) Psych: Appearance: grossly normal and well kempt Mental Status: mental status grossly normal Objective Data Vital Signs Vital Signs: Vital Signs - 24 hr 04/27/20 16:00 04/27/20 17:10 04/27/20 19:47 Temperature 37.2 C Pulse Rate 95 100 Respiratory Rate 20 Blood Pressure 129/77 Pulse Oximetry 91 91 93 04/27/20 19:50 04/27/20 20:00 04/28/20 00:00 Temperature 37.2 C 37.0 C Pulse Rate 96 96 Respiratory Rate 20 20 Blood Pressure 115/58 L 100/61 Pulse Oximetry 91 98 96 04/28/20 04:00 04/28/20 08:00 04/28/20 08:44 Temperature 36.7 C Pulse Rate 93 100 Respiratory Rate 20 Blood Pressure 107/62 Pulse Oximetry 94 91 92 Intake/Output Intake/Output: Intake & Output 04/25/20 04/26/20 04/27/20 04/28/20 23:59 23:59 23:59 23:59 Intake Total 2320 1720 990 700 Output Total 206 559 7890 Balance 2019 920 -710 700 Meds/Results Medications: Active Medications Generic Name Dose Route Start Last Admin Trade Name Freq PRN Reason Stop Dose Admin Acetaminophen 650 mg 04/08/20 22:24 04/22/20 18:42 Acetaminophen 325 Mg Tablet PO 650 mg Q4H PRN Administration Mild Pain (1-3) or Fever Albuterol 4 puff 04/28/20 14:00 Albuterol Sulfate (*Sp) Aerosol 1 Puff INHALATION Q6HRT WILBERT Ascorbic Acid 500 mg 04/28/20 09:00 04/28/20 08:35 Ascorbic Acid 500 Mg Tablet PO 500 mg BID WILBERT Administration Docusate Sodium 100 mg 04/18/20 21:00 04/28/20 08:33 Docusate Sodium 100 Mg Capsule PO 100 mg
[2020-04-28] MEDS: ALBUTEROL SULFATE (*SP) AEROSOL 1 PUFF 4 PUFF INHALATION ×2 (14:20→21:41)
[2020-04-29] VITALS (14 sets, daily range): BP systolic 104–122; BP diastolic 47–76; PULSE 69–109; RESP 20–41; TEMP 36.4–37.8; O2SAT 80–97
[2020-04-29] MEDS: ALBUTEROL SULFATE (*SP) AEROSOL 1 PUFF 4 PUFF INHALATION ×2 (03:10→21:34)
[2020-04-29 05:09] LABS: Alveolar/Arterial O2 Gradient 638.7 mmHg; Base Excess ABG -3.9 mEq/l (+/-2.0); Fractional Inspired Oxygen 100 %; HCO3 ABG 19.2 mEq/l (22.0-26.0); PCO2 ABG 29.3 mmHg (35.0-45.0); PO2 FiO2 Ratio Arterial Blood 0.45 %; Total Hemoglobin 11.7 g/dL (12.0-18.0); pH ABG 7.435 (7.350-7.450)
[2020-04-29 05:12] LABS: Device NON-REBREATHER MASK; Modified Allen's Test Pass; Oxygen Saturation ABG 83.3 % (95.0-100.0); Site Drawn RIGHT RADIAL
--- NOTE | 2020-04-29 05:31 | PC.NURSE ---
Pt O2 saturation in the 70s while using the bathroom. Saturation remained at 80% while recovering in bed. Pt not in distress at this time. ABGs obtained and were critical. Pt being transfered to IMU for continuous Bipap.
--- NOTE | 2020-04-29 06:30 | PC.NURSE ---
This patient, Renata Latif, was transferred to IMU 232. Personal belongings sent with patient. Report given to Nic Fernandez RN. Appropriate documentation sent with patient.
--- NOTE | 2020-04-29 06:42 | PM.EVENT ---
Event Note Event Note Event Note: Nursing staff called me and alerted me that the patient had a low oxygen saturation (mid 80s) on high flow oxygen and 15 liters nonrebreather. The patient tonight is alert and oriented and denies feeling short of breath. ABG was obtained and demonstrated a low pO2 of 45. The patient will be initiated on Bipap and transferred to IMU. I have discussed this plan with her in detail and she is in agreement.
[2020-04-29 08:00] LABS: Alveolar/Arterial O2 Gradient 618.4 mmHg; Base Excess ABG 2.2 mEq/l (+/-2.0); Fractional Inspired Oxygen 100 %; HCO3 ABG 25.8 mEq/l (22.0-26.0); Oxygen Content ABG 15.6 %vol (16.0-22.0); Oxygen Saturation ABG 91.7 % (95.0-100.0); Oxyhemoglobin 89.5 % THb (90.0-100.0); PCO2 ABG 36.7 mmHg (35.0-45.0); PO2 ABG 57.9 mmHg (80.0-100.0); PO2 FiO2 Ratio Arterial Blood 0.58 %; Total Hemoglobin 12.4 g/dL (12.0-18.0); pH ABG 7.465 (7.350-7.450)
[2020-04-29 08:01] LABS: Device NON-INVASIVE VENT; Modified Allen's Test Pass; Non-Invasive Expiratory Pressure 8 CMH2O; Non-Invasive Inspiratory Pressure 16 CMH2O; Non-Invasive Vent Rate 6 /MIN; Site Drawn RIGHT RADIAL
--- NOTE | 2020-04-29 08:28 | PCOTNOTE ---
OT evaluation attempted. Per RN, hold this date due to patient's increased O2 needs. Check tomorrow with nursing prior to attempting OT evaluation.
--- NOTE | 2020-04-29 08:31 | PCPTNOTE ---
PT evaluation attempted. Per RN, hold this date due to patient's increased O2 needs on BiPAP. Check tomorrow with nursing prior to attempting PT evaluation.
[2020-04-29] MEDS: methylPREDNISolone SOD SUCC 40 MG VIAL IV PUSH ×2 (10:19→21:51)
[2020-04-29] MEDS: FAMOTIDINE 20 MG TABLET PO (10:20)
--- NOTE | 2020-04-29 10:27 | PC.NURSE ---
Spoke with Dr. Sands regarding patient's request to go home on hospice. New order to cancel blood draw
--- NOTE | 2020-04-29 11:44 | PCDIET ---
Weekly nutritional screen. Patient is now NPO with plan for hospice. Consult RD if change in plan occurs and aggressive nutritional therapy is desired.
[2020-04-29 12:49] LABS: Procalcitonin <0.10 ng/mL (<0.10)
--- NOTE | 2020-04-29 13:26 | PM.IMPN ---
Progress Note: A&P Assessment and Plan (1) Pneumonia due to 2019 novel coronavirus: Code(s): U07.1 - COVID-19; J12.89 - Other viral pneumonia Status: Acute Assessment and Plan: -patient was symptomatic 7 days prior to admission -patient has had COVID-19 for last 24 days, with no improvement, she was moved to IMU for further decline needing continuous BiPAP to maintain oxygen saturation. Patient was and impending intubation. -clinical deterioration despite completing remdesivir, dexamethasone, supportive care with prone position, antipyretics, bronchodilators, expectorants, supplements zinc, vitamin-C, vitamin-D, incentive spirometer. -CTA chest found no PE, echocardiogram is unremarkable, show card writer was consulted who added prednisone -patient has put a lot of thought into her medical condition and with declining status she would like to go home with hospice. she absolutely refuses intubation. She has experience with hospice with her and knows what to expect (2) Acute respiratory failure: Qualifiers: Respiratory failure complication: hypoxia Qualified Code(s): J96.01 - Acute respiratory failure with hypoxia Code(s): J96.00 - Acute respiratory failure, unspecified whether with hypoxia or hypercapnia Status: Acute Assessment and Plan: As above (3) Moderate persistent asthma: Qualifiers: Asthma complication type: unspecified Qualified Code(s): J45.40 - Moderate persistent asthma, uncomplicated Code(s): J45.40 - Moderate persistent asthma, uncomplicated Status: Acute Assessment and Plan: Not in acute exacerbation. Continue prior to admission Symbicort. Continue albuterol scheduled as above. (4) Obesity (BMI 30.0-34.9): Code(s): E66.9 - Obesity, unspecified Status: Chronic Assessment and Plan: Healthy lifestyle modifications are encouraged. (5) GERD (gastroesophageal reflux disease): Code(s): K21.9 - Gastro-esophageal reflux disease without esophagitis Status: Inactive Assessment and Plan: Continue prior to admission pepcid BID. (6) Liver cyst: Code(s): K76.89 - Other specified diseases of liver Status: Acute Assessment and Plan: 7.3cm cyst visualized on chest CTA. Recommend outpatient follow-up. (7) Anemia: Code(s): D64.9 - Anemia, unspecified Status: Acute Assessment and Plan: Hb is 11 and Hct 35. Iron studies are consistent with anemia of chronic disease. Vitamin B12 and folate are sufficient. This is likely due to acute illness. Continue to monitor with CBC daily. (8) Counseling regarding end of life decision making: Code(s): Z71.89 - Other specified counseling Status: Acute Assessment and Plan: Discussed at length the big decision she is making going down route of a hospice and to talk to her family. She is familiar with hospice as her had passed with hospice. I discussed case with hospice nurse they are involved in arranging everything for anticipate discharge tomorrow. Additional Plan #COVID-19 pneumonia # hospice - Chest x-ray consistent with COVID-19, recent sick contact granddaughter was positive -patient states she has been dealing COVID-19 for 24 clinical decline she would like to go home with hospice -hospice has been consulted, arranging equipment home -giving morphine 2 mg q.2 hours p.r.n. for air hunger, goals are to get her down to non-rebreather so that she can be transferred home for hospice. Patient will have BiPAP set up at home and necessary equipment. #Moderate persistant asthma #Obesity BMI 32.9 #GERD continue home pepcid Diet: NPO except ice chips DVT prophylaxis: Lovenox 40mg q12hr for COVID 19 with elevated inflammatory markers GI prophylaxis: Pepcid Code status: Do not resuscitate Disposition: Hospice tomorrow Subjective Date/time seen: 04/29/20 13:26 Patient examined.
[2020-04-29] MEDS: BUDESONIDE RESPULE NEB 0.5 MG/2 ML AMP INHALATION (21:34)
[2020-04-29] MEDS: IPRATROPIUM BR 0.02% INH SOLN 0.5 MG/2.5 ML VIAL INHALATION (21:35)
[2020-04-29] MEDS: ENOXAPARIN 40 MG/0.4 ML SYRINGE SUB-Q (21:51)
[2020-04-30] VITALS (11 sets, daily range): BP systolic 104–132; BP diastolic 63–82; PULSE 77–113; RESP 22–28; TEMP 36.6–38.2; O2SAT 87–95
[2020-04-30] MEDS: IPRATROPIUM BR 0.02% INH SOLN 0.5 MG/2.5 ML VIAL INHALATION ×2 (03:03→09:18)
[2020-04-30] MEDS: ALBUTEROL SULFATE NEB 2.5 MG/0.5 ML INH 5 MG INHALATION ×2 (03:03→09:18)
[2020-04-30] MEDS: BUDESONIDE RESPULE NEB 0.5 MG/2 ML AMP INHALATION (09:18)
--- NOTE | 2020-04-30 09:30 | PM.DS ---
DS: Admitting Diagnosis Admitting Diagnosis Admitting Diagnosis: suspected COVID-19 DS: Discharge Diagnosis Discharge Diagnosis (1) Pneumonia due to 2019 novel coronavirus: Code(s): U07.1 - COVID-19; J12.89 - Other viral pneumonia Status: Acute Assessment and Plan: -patient was symptomatic 7 days prior to admission -patient has had COVID-19 for last 24 days, with no improvement, she was moved to IMU for further decline needing continuous BiPAP to maintain oxygen saturation. Patient was and impending intubation. -clinical deterioration despite completing remdesivir, dexamethasone, supportive care with prone position, antipyretics, bronchodilators, expectorants, supplements zinc, vitamin-C, vitamin-D, incentive spirometer. -CTA chest found no PE, echocardiogram is unremarkable, electrician research was consulted who added prednisone -patient has put a lot of thought into her medical condition and with declining status she would like to go home with hospice. she absolutely refuses intubation. She has experience with hospice with her and knows what to expect (2) Acute respiratory failure: Qualifiers: Respiratory failure complication: hypoxia Qualified Code(s): J96.01 - Acute respiratory failure with hypoxia Code(s): J96.00 - Acute respiratory failure, unspecified whether with hypoxia or hypercapnia Status: Acute Assessment and Plan: As above (3) Moderate persistent asthma: Qualifiers: Asthma complication type: unspecified Qualified Code(s): J45.40 - Moderate persistent asthma, uncomplicated Code(s): J45.40 - Moderate persistent asthma, uncomplicated Status: Acute Assessment and Plan: Not in acute exacerbation. Continue prior to admission Symbicort. Continue albuterol scheduled as above. (4) Obesity (BMI 30.0-34.9): Code(s): E66.9 - Obesity, unspecified Status: Chronic Assessment and Plan: Healthy lifestyle modifications are encouraged. (5) Liver cyst: Code(s): K76.89 - Other specified diseases of liver Status: Acute Assessment and Plan: 7.3cm cyst visualized on chest CTA. Recommend outpatient follow-up. (6) Anemia: Code(s): D64.9 - Anemia, unspecified Status: Acute Assessment and Plan: Hb is 11 and Hct 35. Iron studies are consistent with anemia of chronic disease. Vitamin B12 and folate are sufficient. This is likely due to acute illness. Continue to monitor with CBC daily. (7) Counseling regarding end of life decision making: Code(s): Z71.89 - Other specified counseling Status: Acute Assessment and Plan: Discussed at length the big decision she is making going down route of a hospice and to talk to her family. She is familiar with hospice as her had passed with hospice. I discussed case with hospice nurse they are involved in arranging everything for anticipate discharge tomorrow. DS: Summary Hospital Course Reason for hospitalization: COVID-19 Hospital Course: Patient is a 59-year-old female with past medical history of asthma, obesity presents to the ED with complaints of dyspnea. She is found to be COVID-19 positive 04/08/2020 after sick contact granddaughter with COVID-19. Her oxygen requirements waxed and waned went up to 15 L high-flow oxygen and non-rebreather, slowly wean down and increased again back to BiPAP. She completed 10 day course of dexamethasone on 04/18, remdesivir course on 04/13. She was treated with supportive care prone positioning, antipyretics, bronchodilators, expectorants, supplements of zinc, vitamin-C and vitamin-D. She had a CTA which showed no PE. Her echocardiogram was unremarkable. Repeat checks x-ray showed extensive consolidations. On 04/29/2020 patient decompensated and required BiPAP and she was moved to the IMU. Patient has put a lot of thought and wants to go home with hospice. She is familiar with h
[2020-04-30] MEDS: MORPHINE SULFATE (*CRX) 2 MG/ML INJ IV PUSH ×2 (12:10→17:16)
[2020-04-30] MEDS: methylPREDNISolone SOD SUCC 40 MG VIAL IV PUSH (12:22)
[2020-05-01 07:47] LABS: Legionella pneumophila Ag Ur Not Detected (Not Detected)
[2020-05-05 10:58] LABS: Pneumococcal Antigen Urine Not Detected (Not Detected)
== END 2020-04-30 17:18 | disposition hospice, home (50) | DRG 177 ==
LOC: ANHED 19:47 → ANH3MEDSUR 21:54 → ANHIMU 04-29 07:09
PROVIDERS: Emergency Medicine; Family Medicine; Physician Assistant; Admitting Provider Student in an Organized Health Care Education/Training Program; Emergency Provider Emergency Medicine; PCP Physician Assistant Medical; Visit Provider Student in an Organized Health Care Education/Training Program
DX: U07.1 COVID-19 (principal); J12.89 Other viral pneumonia; J96.01 Acute respiratory failure with hypoxia; J45.40 Moderate persistent asthma, uncomplicated; Z91.19 Patient's noncompliance with other medical treatment and regimen; K21.9 Gastro-esophageal reflux disease without esophagitis; E66.9 Obesity, unspecified; Z68.32 Body mass index [BMI] 32.0-32.9, adult; F17.210 Nicotine dependence, cigarettes, uncomplicated; D63.8 Anemia in other chronic diseases classified elsewhere; K76.89 Other specified diseases of liver
CPT/HCPCS: 36415; 36600; 71045; 71046; 71275; 80048; 80053; 81003; 82550; 82607; 82728; 82746; 82805; 83540; 83550; 83605; 83615; 83735; 83880; 84145; 85025; 85027; 85380; 86140; 87040; 87449; 87635; 87804; 87899; 93005; 93306; 94002; 94640; 94667; 94668; 96372; 96374; 99285; A9270; C9803; G0378; J1650; J1940; J2270; J2920; J2930; J7512; J8540; Q9967; U0003